=== PATIENT | male | born 1990 | race Caucasian/White ===

== ENCOUNTER 2020-01-25 13:23 | Inpatient (IN) | payer SELFPAY ==
--- NOTE | 2020-01-25 13:32 | ED_ITS ---
HPI - Psych General: Chief Complaint: Psychiatric Symptoms Stated Complaint: 96 Time Seen by Provider: 01/25/20 13:32 History of Present Illness: HPI Narrative: 29-year-old male presents emergency room with complaints of suicidal homicidal ideation. He says he has been depressed anxious. He claims to speak about any specifics. He has been admitted to the stress unit in the past. Has a history of substance abuse MD complaint: suicidal ideation and feels depressed Onset (ago): day(s) Duration: intermittent and getting worse History of same: Yes Relieving factors: none Exacerbating factors: none Associated symptoms: Reports depression, homicidal ideation and suicidal ideation; Deny auditory hallucinations, visual hallucinations, delusions or racing thoughts Treatments prior to arrival: none If self harm: admits thoughts of self harm and has plan Review of Systems Const: Denies: fever(s), chills, body aches, change in appetite, fatigue or malaise ENMT: Denies: throat pain, ear or mastoid pain, nasal discharge or nasal congestion Card: Denies: chest pain, edema, dyspnea on exertion or orthopnea Resp: Denies: dyspnea, productive cough or non-productive cough GI: Denies: abdominal pain, nausea, vomiting, hematemesis, coffee ground emesis, diarrhea, constipation, bloating, hematochezia or melena : Denies: flank pain, dysuria, urinary frequency or urinary urgency Skin/Breast: Denies: rash or pruritus Psych: Reports: depression, suicidal ideation and homicidal ideation; Denies: visual hallucinations or auditory hallucinations Physical Exam Const: COMMON NORMALS: no acute distress GENERAL APPEARANCE: cooperative and comfortable ORIENTATION/CONSCIOUSNESS: Yes awake, Yes oriented to person, Yes oriented to place and Yes oriented to time HENMT: COMMON NORMALS: normocephalic, atraumatic and hearing grossly normal bilaterally HEAD & SCALP: normocephalic and atraumatic Neck/C-Spine: COMMON NORMALS: no JVD Resp: COMMON NORMALS: normal respiratory effort, No retractions, No use of accessory muscles and clear to auscultation bilaterally AUSCULTATION: clear to auscultation bilaterally Cardio: COMMON NORMALS: no JVD, regular rate, regular rhythm and No murmurs present (Cardio) RATE: regular rate RHYTHM: regular rhythm GI: COMMON NORMALS: Soft to palpation and No hepatosplenomegaly present AUSCULTATION: Yes normoactive bowel sounds PALPATION: Yes Soft to palpation, No Tenderness to palpation present (GI), No Guarding due to palpation present (GI) and Yes No hepatosplenomegaly present Extremity: COMMON NORMALS: normal to inspection, capillary refill normal, no clubbing, cyanosis or edema, no calf tenderness and no pedal edema Neuro: SENSORIUM/ORIENTATION: Yes oriented to person, Yes oriented to place and Yes oriented to time Psych: THOUGHT CONTENT: No delusions Skin: COMMON NORMALS: no rashes or lesions noted GENERAL SKIN EXAM: no rashes or lesions noted MDM - Psych MDM Narrative: Medical decision making narrative: Discussed with Dr. Mcgregor patient is making suicidal homicidal threats there is an affidavit from the mother as well as from the police. 96-hour hold placed orders written. Lab Data: Labs: Lab Results 01/25/20 01/25/20 01/25/20 Range/Units 13:53 13:53 14:00 WBC 4.3 (4.0-10.0) 10^3/ uL RBC 4.78 (4.1-5.3) 10^6/u L Hgb 14.9 (11.7-16.6) g/dL Hct 45.6 (42.0-52.0) % MCV 95.4 H (80-94) fL MCH 31.2 (28.0-34.0) pg MCHC 32.7 (30.0-36.0) g/dL RDW 11.8 L (12.1-15.1) % Plt Count 315 (130-400) 10^3/c mm MPV 9.4 (7.4-10.4) fL Neut % (Auto) 52.5 % Lymph % (Auto) 32.3 % [place] % (Auto) 10.0 % Eos % (Auto) 3.5 % Baso % (Auto) 1.2 % Neut # (Auto) 2.26 (1.8-7.7) 10^3/u L Lymph # (Auto) 1.4 (0.8-4.8) 10^3/u L [place] # (Auto) 0.4 (0.2-0.9) 10^3/u L Eos # (Auto) 0.2 (0.0-0.8) 10^3/u L Baso # (Auto) 0.1 (0.0-0.1) 10^3/u L Nucleated RBC % (a uto) 0 % Nucleated RBCs # 0.0 /100WBC Sodium 139 (136-145) mmol/L Potassium 4.1 (3.5-5.1) mmol/L Chloride 104 (98-107) mmol/L Carbon Dioxide 24 (22-29) mmol/L Anion Gap 15.1 (5-19) BUN 11 (6-20) mg/dL Creatinine 0.7 (0.7-1.2) mg/dL Glucose 109 (65-115) mg/dL Calculated Osmolal ity 288 (285-295) mOsm/k g Calcium 9.3 (8.5-10.5) mg/dL Total Bilirubin 0.5 (0.15-1.2) mg/dL AST 23 (0-40) U/L ALT 22 (0-41) U/L Alkaline Phosphata se 84 (40-130) IU/L Total Protein 7.2 (6.6-8.7) g/dL Albumin 4.8 (3.5-5.2) g/dL Globulin 2.4 (1.3-4.6) g/dL Urine Color Straw (Yellow) Urine Appearance Clear (CLEAR) Urine pH 7 (5-7) Ur Specific Gravit y 1.005 (1.005-1.030) Urine Protein Neg (Negative) Urine Glucose (UA) Norm (Normal) Urine Ketones Negative (Negative) Urine Blood Neg (Negative) Urine Nitrate Negative (Negative) Urine Bilirubin Neg (Negative) Urine Urobilinogen Norm (Negative) mg/dL Ur Leukocyte Melissa ase Negative (Negative) Urine Opiates Scre en (Negative) ng/mL Ur Barbiturates Sc reen (Negative) ng/mL Ur Phencyclidine S crn (Negative) ng/mL Ur Amphetamines Sc reen (Negative) ng/mL U Benzodiazepines Scrn (Negative) ng/mL Urine Cocaine Scre en (Negative) ng/mL U Marijuana (THC) Screen (Negative) ng/mL 01/25/20 Range/Units 14:00 WBC (4.0-10.0) 10^3/ uL RBC (4.1-5.3) 10^6/u L Hgb (11.7-16.6) g/dL Hct (42.0-52.0) % MCV (80-94) fL MCH (28.0-34.0) pg MCHC (30.0-36.0) g/dL RDW (12.1-15.1) % Plt Count (130-400) 10^3/c mm MPV (7.4-10.4) fL Neut % (Auto) % Lymph % (Auto) % [place] % (Auto) % Eos % (Auto) % Baso % (Auto) % Neut # (Auto) (1.8-7.7) 10^3/u L Lymph # (Auto) (0.8-4.8) 10^3/u L [place] # (Auto) (0.2-0.9) 10^3/u L Eos # (Auto) (0.0-0.8) 10^3/u L Baso # (Auto) (0.0-0.1) 10^3/u L Nucleated RBC % (a uto) % Nucleated RBCs # /100WBC Sodium (136-145) mmol/L Potassium (3.5-5.1) mmol/L Chloride (98-107) mmol/L Carbon Dioxide (22-29) mmol/L Anion Gap (5-19) BUN (6-20) mg/dL Creatinine (0.7-1.2) mg/dL Glucose (65-115) mg/dL Calculated Osmolal ity (285-295) mOsm/k g Calcium (8.5-10.5) mg/dL Total Bilirubin (0.15-1.2) mg/dL AST (0-40) U/L ALT (0-41) U/L Alkaline Phosphata se (40-130) IU/L Total Protein (6.6-8.7) g/dL Albumin (3.5-5.2) g/dL Globulin (1.3-4.6) g/dL Urine Color (Yellow) Urine Appearance (CLEAR) Urine pH (5-7) Ur Specific Gravit y (1.005-1.030) Urine Protein (Negative) Urine Glucose (UA) (Normal) Urine Ketones (Negative) Urine Blood (Negative) Urine Nitrate (Negative) Urine Bilirubin (Negative) Urine Urobilinogen (Negative) mg/dL Ur Leukocyte Melissa ase (Negative) Urine Opiates Scre en Negative (Negative) ng/mL Ur Barbiturates Sc reen Negative (Negative) ng/mL Ur Phencyclidine S crn Negative (Negative) ng/mL Ur Amphetamines Sc reen Negative (Negative) ng/mL U Benzodiazepines Scrn Negative (Negative) ng/mL Urine Cocaine Scre en Negative (Negative) ng/mL U Marijuana (THC) Screen Positive H (Negative) ng/mL Discharge Plan Discharge Patient Disposition: Admitted As Inpatient Clinical Impression: Suicidal ideation, Chronic schizophrenia, Depression Condition: Stable Referrals: Andrew Eli MD [Family Provider] - Coding Level of Care Code ED Associate Professor Of Art History for [facility] Fwd Exam Comprehensive
[2020-01-25 13:35] VITALS: BP 143/85; PULSE 90; RESP 16; TEMP 36.8; O2SAT 96; BMI 18.2
[2020-01-25 13:41] VITALS: BP 151/101; PULSE 93; RESP 18; O2SAT 99
[2020-01-25 14:15] LABS: Add Urine Microscopic? NO
[2020-01-25 14:16] LABS: Basophils # 0.1 10^3/uL (0.0-0.1); Basophils % 1.2 %; Eosinophils # 0.2 10^3/uL (0.0-0.8); Eosinophils % 3.5 %; Hematocrit 45.6 % (42.0-52.0); Hemoglobin 14.9 g/dL (11.7-16.6); Lymphocytes # 1.4 10^3/uL (0.8-4.8); Lymphocytes % 32.3 %; Mean Corpuscular HGB Conc 32.7 g/dL (30.0-36.0); Mean Corpuscular Hemoglobin 31.2 pg (28.0-34.0); Mean Corpuscular Volume 95.4 fL (80-94); Mean Platelet Volume 9.4 fL (7.4-10.4); Monocytes # 0.4 10^3/uL (0.2-0.9); Neutrophils # 2.26 10^3/uL (1.8-7.7); Neutrophils % 52.5 %; Nucleated Red Blood Cells % 0 %; Platelet Count 315 10^3/cmm (130-400); Red Blood Count 4.78 10^6/uL (4.1-5.3); Red Cell Distribution Width 11.8 % (12.1-15.1); White Blood Count 4.3 10^3/uL (4.0-10.0)
[2020-01-25 14:24] LABS: Bilirubin Urine Neg (Negative); Blood Urine Neg (Negative); Glucose Urine UA Norm (Normal); Ketones Urine Negative (Negative); Leukocyte Esterase Urine Negative (Negative); Nitrate Urine Negative (Negative); Protein Urine Neg (Negative); Specific Gravity, Urine 1.005 (1.005-1.030); Urine Appearance Clear (CLEAR); Urine Color Straw (Yellow); Urobilinogen Urine Norm (Negative); pH Urine 7 (5-7)
[2020-01-25 14:30] LABS: Amphetamines Screen Urine Negative (Negative); Barbiturates Screen Urine Negative (Negative); Benzodiazepines Screen Urine Negative (Negative); Cocaine Screen Urine Negative (Negative); Opiate Screen Urine Negative (Negative); PCP Screen Urine Negative (Negative); THC Screen Urine Positive (Negative)
[2020-01-25 14:34] VITALS: BP 148/99; PULSE 89; RESP 20; O2SAT 98
[2020-01-25 14:38] LABS: Alanine Aminotransferase 22 U/L (0-41); Albumin Level 4.8 g/dL (3.5-5.2); Alcohol Level 81 mg/dL (0-10); Alkaline Phosphatase 84 IU/L (40-130); Anion Gap 15.1 (5-19); Aspartate Amino Transferase 23 U/L (0-40); Blood Urea Nitrogen 11 mg/dL (6-20); Calcium 9.3 mg/dL (8.5-10.5); Carbon Dioxide 24 mmol/L (22-29); Chloride 104 mmol/L (98-107); Creatinine Clr Calc Pharmacy 152.5478; Globulin 2.4 g/dL (1.3-4.6); Glomerular Filtration Rate 135.3 mL/min (90-130); Glucose 109 mg/dL (65-115); Osmolality Calculated 288 mOsm/kg (285-295); Potassium 4.1 mmol/L (3.5-5.1); Sodium 139 mmol/L (136-145); Total Bilirubin 0.5 mg/dL (0.15-1.2); Total Protein 7.2 g/dL (6.6-8.7)
[2020-01-25 14:50] LABS: Acetaminophen < 5.0 ug/mL (10-30); Salicylate < 0.3 mg/dL (3-10)
[2020-01-25 15:18] VITALS: BP 149/97; PULSE 88; RESP 18; TEMP 36.6; O2SAT 96
[2020-01-25 16:49] VITALS: BP 138/89; PULSE 89; RESP 18; TEMP 36.5
[2020-01-25] MEDS: nicotine 2 mg Gum BUCCAL (17:49)
[2020-01-25] MEDS: trazodone 50 mg Tablet PO (20:43)
[2020-01-25] MEDS: hyDROXYzine 25 mg Capsule 50 MG PO (20:43)
[2020-01-25 20:45] VITALS: BP 122/77; PULSE 76; RESP 17; TEMP 36.4; O2SAT 6
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
[2020-01-26] MEDS: nicotine 2 mg Gum BUCCAL ×2 (13:40→16:59)
[2020-01-26 14:00] VITALS: BP 126/89; PULSE 82; RESP 18; TEMP 37
[2020-01-26 19:50] VITALS: BP 120/76; PULSE 73; RESP 16; TEMP 36.6; O2SAT 96
[2020-01-26] MEDS: hyDROXYzine 25 mg Capsule 50 MG PO (20:35)
[2020-01-26] MEDS: trazodone 50 mg Tablet PO (20:36)
[2020-01-27 06:00] VITALS: BP 111/75; PULSE 67; RESP 16; TEMP 36.8; O2SAT 98
[2020-01-27] MEDS: sertraline 50 mg Tablet PO (08:16)
--- NOTE | 2020-01-27 13:26 | NPU.GN ---
Brock was the most active participant in group this afternoon. He contributed a lot of personal experience and accountability of his own actions to the group. Brock seemed to enjoy the topic because he could relate to the things were speaking on. He spoke highly of his future and the goals he has for himself.
[2020-01-27] MEDS: nicotine 2 mg Gum BUCCAL ×2 (13:29→15:38)
[2020-01-27 14:00] VITALS: BP 132/89; PULSE 84; RESP 18; TEMP 37.1; O2SAT 99
--- NOTE | 2020-01-27 14:36 | PM.NPN ---
Subjective NPU Subjective: Interval history: Hank presented today reporting that he is doing better overall. He reports that he is serious this time that he has to get things together, be connected with treatment and will have not been anywhere he is more or less always done them. He agreed to work with the social work team to get connected with treatment prior to discharge. We discussed the plan to monitor him on medication for a couple of days with a plan to discharge him with a scheduled increase in the Zoloft to 100 mg. Reporting finding better. Mental Status Exam MSE Comments: This is a thin white male with adequate dress, grooming and eye contact. No abnormal movements except for resolving psychomotor retardation. Cooperative with exam no acute distress. Speech was more normal rate and volume. Mood described as a little better, affect less subdued. Thought process organized. Thought content: Patient denied any suicidal or homicidal ideation, there were no delusions reported or noted, he denied any auditory or visual hallucinations. Attention and concentration were intact and memory was reliable but none were formally tested. He is alert and oriented x3. Insight and judgment are improving. Impulse control is impaired, but improving. Vitals/I&O/Wt Last Vital Signs Temp 100.0 F H 01/27/20 19:49 Pulse 82 01/27/20 19:49 Resp 17 01/27/20 19:49 BP 144/79 01/27/20 19:49 Pulse Ox 98 01/27/20 19:49 Weight last 48 hrs Weight 66.678 kg Data NPU : 01/25/20 13:53 01/25/20 13:53 A&P Additional A&P Information (1) Suicidal ideation: (2) Depression: (3) Alcohol use: (4) Cannabis use disorder, mild, abuse: This is a 29-year-old white male with a history of addiction and significant mental health treatment with recent reports of possible psychosis who presents endorsing depression and lethality and and openness to the patient has been. 1. Continue current medication. 2. Continue every 15 minute checks for safety. 3. Encourage individual, group and milieu therapy. 4. Encourage sober living treatment upon discharge at the highest level of care to which he is willing to commit. Involuntary Hold Information 96 Hour Hold: 96 Hour Involuntary Admission: Yes 96 Hour Hold Ending Date: 01/31/20 96 Hour Hold Ending Time: 00:01 Attestations NPU Medical Necessity Statement*: Inpatient hospitalization is necessary and the clinically appropriate intervention at this time. We will monitor/medications and make changes as indicated. Likely length of stay 2-4 days. Coding Level of Care Code Acute Sales Account Executive for [employer]
[2020-01-27 19:49] VITALS: BP 144/79; PULSE 82; RESP 17; TEMP 37.8; O2SAT 98
[2020-01-27] MEDS: acetaminophen 325 mg Tablet 650 MG PO (20:21)
[2020-01-27] MEDS: trazodone 50 mg Tablet PO (20:21)
[2020-01-27] MEDS: hyDROXYzine 25 mg Capsule 50 MG PO (20:21)
[2020-01-28 06:00] VITALS: BP 146/96; PULSE 66; RESP 17; TEMP 36.5; O2SAT 99
[2020-01-28] MEDS: sertraline 50 mg Tablet PO (08:20)
[2020-01-28] MEDS: nicotine 2 mg Gum BUCCAL (10:32)
[2020-01-28 10:37] VITALS: BP 146/96; PULSE 66; RESP 17; TEMP 36.5; O2SAT 99
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
== END 2020-01-28 10:52 | disposition home or self-care (01) | DRG 881 ==
LOC: ER 14:46 → NP 14:54
PROVIDERS: Admitting Provider Psychiatry & Neurology Psychiatry; Emergency Provider Family Medicine; Family Provider Family Medicine; Visit Provider Psychiatry & Neurology Psychiatry
DX: F32.9 Major depressive disorder, single episode, unspecified (principal); R45.851 Suicidal ideations; F12.10 Cannabis abuse, uncomplicated; F10.10 Alcohol abuse, uncomplicated; R45.850 Homicidal ideations; Y90.6 Blood alcohol level of 120-199 mg/100 ml; Z91.5 Personal history of self-harm
CPT/HCPCS: 12345; 80053; 80306; 80307; 81003; 85025; 99284

== ENCOUNTER 2021-08-17 21:55 | Emergency (ER) | payer SELFPAY ==
[2021-08-17 21:58] VITALS: BP 161/95; PULSE 90; RESP 16; TEMP 36.7; O2SAT 99; BMI 19.8
--- NOTE | 2021-08-17 21:58 | ECG_ITS ---
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 Measurements Intervals Mcleod Rate: 89 P: 66 NC: 145 QRS: 77 QRSD: 106 T: 66 QT: 377 QTc: 459 Interpretive Statements SINUS RHYTHM POSSIBLE LEFT VENTRICULAR HYPERTROPHY [VOLTAGE CRITERIA PLUS LAE OR QRS WIDENING Compared to ECG 12/11/2017 21:22:02 Sinus arrhythmia no longer present Electronically Signed On 08-17-2021 22:31:29 CDT by Tonny Nunez M.D. [id number]
[2021-08-17 22:00] VITALS: BP 161/95; PULSE 97; RESP 17; O2SAT 98
--- NOTE | 2021-08-17 22:01 | ED_ITS ---
HPI - Overdose General: Chief Complaint: Overdose Stated Complaint: OD Time Seen by Provider: 08/17/21 21:55 Source: patient and EMS Mode of arrival: EMS Limitations: no limitations History of Present Illness: 30-year-old male states he was partying with friends tonight 2 to 3 hours ago. He states he had been drinking alcohol and they had also had been snorting methamphetamine along with fentanyl. States that he is only used a few times and started get very nervous and called EMS. When EMS arrived he states that he had been lethargic and was little somnolent gave him 0.25 Narcan he is awake and alert and answering my questions appropriately he denies this being intentional he states that it was recreational drug use denies any suicidal homicidal ideations. Review of Systems Const: Denies: fever(s), chills, body aches or change in appetite Eyes: Denies: blurry vision or eye discomfort ENMT: Denies: throat pain or dental pain Card: Denies: chest pain Resp: Denies: dyspnea GI: Denies: abdominal pain, nausea, vomiting or diarrhea : Denies: dysuria Musc: Denies: neck pain or back pain Skin/Breast: Denies: rash Neuro: Denies: headache(s) Psych: Denies: depression Alber/Lymph: Denies: easy bruising All/Imm: Denies: urticaria [facility] ED PFSH: Medical History Alcohol use Cannabis use disorder, mild, abuse Chronic schizophrenia Depression Social History Smoking and tobacco status: current some day smoker cigarettes Years cigarettes smoked: 12 Current gender identity: Male Physical Exam Const: COMMON NORMALS: patient oriented x3 GENERAL APPEARANCE: lethargic ORIENTATION/CONSCIOUSNESS: Yes lethargic HENMT: COMMON NORMALS: normocephalic and atraumatic HEAD & SCALP: normocephalic and atraumatic Eye: COMMON NORMALS: EOMs intact bilaterally OTHER: pin point pupils Neck/C-Spine: COMMON NORMALS: full ROM and supple Chest: COMMONS NORMALS: normal inspection of the chest and normal palpation of entire chest wall Resp: COMMON NORMALS: normal respiratory effort, No retractions, No use of accessory muscles and clear to auscultation bilaterally AUSCULTATION: clear to auscultation bilaterally Cardio: COMMON NORMALS: regular rate, regular rhythm and No murmurs present (Cardio) RATE: regular rate RHYTHM: regular rhythm GI: COMMON NORMALS: Normal to inspection, nondistended, normoactive bowel sounds present, Soft to palpation, non-tender and no masses PALPATION: Yes Soft to palpation Extremity: COMMON NORMALS: normal to inspection and full ROM Neuro: COMMON NORMALS: patient oriented x3, moves all extremities and no focal motor deficits SENSORIUM/ORIENTATION: Yes lethargic Psych: COMMON NORMALS: mental status grossly normal, Normal thought process present and cooperative THOUGHT PROCESS: Normal thought process present Skin: COMMON NORMALS: no rashes or lesions noted and no wounds GENERAL SKIN EXAM: no rashes or lesions noted Course Vital Signs: Vital signs: Vital Signs Temperature 98.0 F 08/17/21 21:58 Pulse Rate 97 08/17/21 22:00 Respiratory Rate 17 08/17/21 22:00 Blood Pressure 161/95 08/17/21 22:00 Pulse Oximetry 98 08/17/21 22:00 MDM - Overdose Medical Decision Making Patient presents here with an accidental overdose he has been well-appearing here he is wanting to leave I did observe him for over an hour he is requesting discharge I feel he is stable for discharge his mom is with him to stay with him tonight he is to follow-up PCP and return if worsening did give him counseling on his substance abuse. Lab Data : 08/17/21 22:04 08/17/21 22:04 Laboratory Results WBC 9.2 10^3/uL (4.0-10.0) 08/17/21 22:04 RBC 4.78 10^6/uL (4.1-5.3) 08/17/21 22:04 Hgb 15.0 g/dL (11.7-16.6) 08/17/21 22:04 Hct 45.5 % (42.0-52.0) 08/17/21 22:04 MCV 95.2 fl (80-94) H 08/17/21 22:04 MCH 31.4 pg (28.0-34.0) 08/17/21 22: MCHC 33.0 g/dL (30.0-36.0) 08/17/21 22:04 RDW 12.3 % (12.1-15.1) 08/17/21 22:04 Plt Count 336 10^3/cmm (130-400) 08/17/21 22:04 MPV 9.5 fL (7.4-10.4) 08/17/21 22:04 Neut % (Auto) 70.3 % 08/17/21 22:04 Lymph % (Auto) 21.4 % 08/17/21 22:04 [place] % (Auto) 5.8 % 08/17/21 22:04 Eos % (Auto) 1.2 % 08/17/21 22:04 Baso % (Auto) 0.4 % 08/17/21 22:04 Neut # (Auto) 6.44 10^3/uL (1.8-7.7) 08/17/21 22:04 Lymph # (Auto) 2.0 10^3/uL (0.8-4.8) 08/17/21 22:04 [place] # (Auto) 0.5 10^3/uL (0.2-0.9) 08/17/21 22:04 Eos # (Auto) 0.1 10^3/uL (0.0-0.8) 08/17/21 22:04 Baso # (Auto) 0.0 10^3/uL (0.0-0.1) 08/17/21 22:04 Nucleated RBC % (auto) 0 % 08/17/21 22:04 Nucleated RBCs # 0.0 /100WBC 08/17/21 22:04 Sodium 138 mmol/L (136-145) 08/17/21 22:04 Potassium 3.1 mmol/L (3.5-5.1) L 08/17/21 22:04 Chloride 98 mmol/L (98-107) 08/17/21 22:04 Carbon Dioxide 24 mmol/L (22-29) 08/17/21 22:04 Anion Gap 19.1 (5-19) H 08/17/21 22:04 BUN 6 mg/dL (6-20) 08/17/21 22:04 Creatinine 0.7 mg/dL (0.7-1.2) 08/17/21 22:04 GFR Calculation 134.3 mL/min (90-130) H 08/17/21 22:04 Glucose 162 mg/dL (65-115) H 08/17/21 22:04 Calculated Osmolality 287 mOsm/kg (285-295) 08/17/21 22:04 Calcium 9.3 mg/dL (8.5-10.5) 08/17/21 22:04 Total Bilirubin 0.2 mg/dL (0.15-1.2) 08/17/21 22:04 AST 28 U/L (0-40) 08/17/21 22:04 ALT 31 U/L (0-41) 08/17/21 22:04 Alkaline Phosphatase 118 IU/L (40-130) 08/17/21 22:04 Total Protein 8.0 g/dL (6.6-8.7) 08/17/21 22:04 Albumin 4.8 g/dL (3.5-5.2) 08/17/21 22:04 Globulin 3.2 g/dL (1.3-4.6) 08/17/21 22:04 Salicylates < 0.3 mg/dL (3-10) L 08/17/21 22:04 Acetaminophen < 5.0 ug/mL (10-30) L 08/17/21 22:04 Ethyl Alcohol 36 mg/dL (0-10) H 08/17/21 22:04 EKG Data EKG 1: I personally reviewed and interpreted this EKG as follows: EKG interpretation date: 08/17/21 EKG interpretation time: 22:04 Interpretation: nsr hr [address] or t wave abnormalities qrs 106 qtc 423 Discharge Plan Discharge Patient Disposition: Home Clinical Impression: Drug overdose Qualifiers: Encounter type: initial encounter Injury intent: accidental or unintentional Qualified Code(s): T50.901A - Poisoning by unspecified drugs, medicaments and biological substances, accidental (unintentional), initial encounter Condition: Stable Prescriptions: No Action sertraline [Zoloft] 100 mg tablet 150 mg PO DAILY Qty: 45 2RF Discharge Orders: Discharge ED (Routine); Ordered 08/17/21 Ordered By: Veena Whaley Referrals: Michelle Wood, BIOLOGY DEPARTMENT CHAIR [Primary Care Provider] - Discharge Diet: Advance as tolerated Discharge Activity: Resume usual activity Patient Instructions: Adult Overdose (ED) Coding Level of Care Code ED Live In Housekeeper Nanny for Chg Fwd Exam Comprehensive
[2021-08-17 22:10] LABS: Basophils % 0.4 %; Eosinophils # 0.1 10^3/uL (0.0-0.8); Eosinophils % 1.2 %; Hematocrit 45.5 % (42.0-52.0); Lymphocytes % 21.4 %; Mean Corpuscular Hemoglobin 31.4 pg (28.0-34.0); Mean Corpuscular Volume 95.2 fl (80-94); Mean Platelet Volume 9.5 fL (7.4-10.4); Monocytes # 0.5 10^3/uL (0.2-0.9); Monocytes % 5.8 %; Neutrophils # 6.44 10^3/uL (1.8-7.7); Neutrophils % 70.3 %; Nucleated Red Blood Cells % 0 %; Platelet Count 336 10^3/cmm (130-400); Red Blood Count 4.78 10^6/uL (4.1-5.3); Red Cell Distribution Width 12.3 % (12.1-15.1); White Blood Count 9.2 10^3/uL (4.0-10.0)
[2021-08-17 22:34] LABS: Alanine Aminotransferase 31 U/L (0-41); Albumin Level 4.8 g/dL (3.5-5.2); Alcohol Level 36 mg/dL (0-10); Alkaline Phosphatase 118 IU/L (40-130); Anion Gap 19.1 (5-19); Aspartate Amino Transferase 28 U/L (0-40); Blood Urea Nitrogen 6 mg/dL (6-20); Calcium 9.3 mg/dL (8.5-10.5); Carbon Dioxide 24 mmol/L (22-29); Chloride 98 mmol/L (98-107); Creatinine Clr Calc Pharmacy 167.0124; Globulin 3.2 g/dL (1.3-4.6); Glomerular Filtration Rate 134.3 mL/min (90-130); Glucose 162 mg/dL (65-115); Osmolality Calculated 287 mOsm/kg (285-295); Potassium 3.1 mmol/L (3.5-5.1); Sodium 138 mmol/L (136-145); Total Bilirubin 0.2 mg/dL (0.15-1.2)
[2021-08-17 22:42] LABS: Acetaminophen < 5.0 ug/mL (10-30); Salicylate < 0.3 mg/dL (3-10)
[2021-08-17 22:45] VITALS: BP 158/98; PULSE 91; RESP 16; O2SAT 98
[2021-08-17 23:00] VITALS: BP 149/88; PULSE 94; RESP 17; O2SAT 98
[2021-08-17 23:14] VITALS: BP 151/89; PULSE 89; RESP 18; O2SAT 100
[2021-08-17 23:16] LABS: Amphetamines Screen Urine Positive (Negative); Barbiturates Screen Urine Negative (Negative); Benzodiazepines Screen Urine Negative (Negative); Cocaine Screen Urine Negative (Negative); Opiate Screen Urine Negative (Negative); PCP Screen Urine Negative (Negative); THC Screen Urine Positive (Negative)
== END 2021-08-17 23:15 | disposition home or self-care (01) ==
PROVIDERS: Emergency Provider Emergency Medicine; PCP Nurse Practitioner
DX: T43.621A Poisoning by amphetamines, accidental (unintentional), initial encounter (principal); T40.411A Poisoning by fentanyl or fentanyl analogs, accidental (unintentional), initial encounter; F17.210 Nicotine dependence, cigarettes, uncomplicated
CPT/HCPCS: 80053; 80306; 80307; 85025; 93005; 99283

== ENCOUNTER 2023-01-07 02:48 | Inpatient (IN) | payer MEDICAID, SELFPAY ==
[2023-01-07 02:49] VITALS: BP 134/104; PULSE 96; RESP 18; TEMP 36.7; O2SAT 97; BMI 21.1
[2023-01-07 03:09] LABS: Add Urine Microscopic? NO; Charge for UA Resulting for Rev
[2023-01-07 03:09] LABS: Basophils # 0.1 10^3/uL (0.0-0.1); Basophils % 0.5 %; Eosinophils % 0.4 %; Hematocrit 45.8 % (37-53); Lymphocytes # 2.1 10^3/uL (0.8-4.8); Lymphocytes % 22.9 %; Mean Corpuscular HGB Conc 33.8 g/dL (30-55); Mean Corpuscular Hemoglobin 31.8 pg (27-33); Mean Corpuscular Volume 93.9 fl (82-101); Monocytes # 0.7 10^3/uL (0.2-0.9); Monocytes % 7.1 %; Neutrophils # 6.28 10^3/uL (1.8-7.7); Neutrophils % 68.7 %; Nucleated Red Blood Cells % 0 %; Platelet Count 393 10^3/cmm (157-399); Red Blood Count 4.88 10^6/uL (3.85-5.65); Red Cell Distribution Width 11.7 % (12.1-15.1); White Blood Count 9.16 10^3/uL (3.29-11.43)
[2023-01-07 03:12] LABS: Bilirubin Urine Neg (Negative); Blood Urine Neg (Negative); Glucose Urine UA Norm (Normal); Ketones Urine Negative (Negative); Leukocyte Esterase Urine Negative (Negative); Nitrate Urine Negative (Negative); Protein Urine Neg (Negative); Specific Gravity, Urine 1.005 (1.005-1.030); Urine Appearance Clear (CLEAR); Urine Color Light yellow (Yellow); Urobilinogen Urine Neg (Negative); pH Urine 7 (5-7)
[2023-01-07 03:21] LABS: Amphetamines Screen Urine Negative (Negative); Barbiturates Screen Urine Negative (Negative); Benzodiazepines Screen Urine Negative (Negative); Cocaine Screen Urine Negative (Negative); Opiate Screen Urine Negative (Negative); PCP Screen Urine Negative (Negative); THC Screen Urine Positive (Negative)
[2023-01-07 03:35] LABS: Acetaminophen < 5.0 ug/mL (10-30); Alanine Aminotransferase 25 U/L (0-41); Albumin Level 5.2 g/dL (3.5-5.2); Alkaline Phosphatase 100 U/L (40-130); Aspartate Amino Transferase 29 U/L (0-40); Blood Urea Nitrogen 8 mg/dL (6-20); Calcium 9.2 mg/dL (8.5-10.5); Carbon Dioxide 23 mmol/L (22-29); Chloride 101 mmol/L (98-107); Globulin 2.9 g/dL (1.3-4.6); Glomerular Filtration Rate 87.7 mL/min (90-130); Glucose 122 mg/dL (65-115); Osmolality Calculated 290 mOsm/kg (285-295); Salicylate 0.5 mg/dL (3-10); Sodium 140 mmol/L (136-145); Total Bilirubin 0.3 mg/dL (0.15-1.2); Total Protein 8.1 g/dL (6.6-8.7)
[2023-01-07 03:36] LABS: Alcohol Level 307 mg/dL (0-10)
--- NOTE | 2023-01-07 03:45 | ED.C_ITS ---
Documented by User: Gavin Jones DO 01/07/23 21:29 HPI - Psych General: Chief Complaint: Psychiatric Symptoms Stated Complaint: ETOH/SI Time Seen by Provider: 01/07/23 02:53 History of Present Illness: 32-year-old intoxicated male presenting by ambulance. He was evidently picked up and charged with driving under the influence this morning. He mentioned being depressed, and having suicidal thoughts. He was hence brought here. He continues to say, I just want to . I do not believe he has a specific plan. He has been admitted to the hospital before for psychiatric problems he says. He denies recent illness or other medical problems. He is not a great historian at this point. Review of Systems Const: Denies: fever(s) Eyes: Denies: change in vision ENMT: Denies: throat pain Card: Denies: chest pain Resp: Denies: dyspnea GI: Denies: abdominal pain or vomiting Neuro: Reports: headache(s) [facility] PFSH: Medical History Alcohol use Cannabis use disorder, mild, abuse Chronic schizophrenia Depression Social History Smoking and tobacco status: current some day smoker cigarettes Years cigarettes smoked: 12 Current gender identity: Male Physical Exam Const: GENERAL APPEARANCE: cooperative, disheveled, lethargic and odor of alcohol detected; not ill appearing and not frail appearing ORIENTATION/CONSCIOUSNESS: Yes lethargic HENMT: COMMON NORMALS: normocephalic, atraumatic and Normal external nose present HEAD & SCALP: normocephalic and atraumatic FACE & SINUS: normal facial exam NOSE: Normal external nose present and Normal nares present MOUTH: Normal oral and palatal mucosa present Eye: COMMON NORMALS: Equal, round and reactive pupils present and EOMs intact bilaterally PUPIL: Yes Equal, round and reactive pupils present Neck/C-Spine: GENERAL: Yes trachea midline CERVICAL SPINE: Yes cervical ROM normal and No Cervical spine tenderness Chest: CHEST: Yes Symmetrical chest wall rise Resp: COMMON NORMALS: normal respiratory effort, No retractions, No use of accessory muscles and clear to auscultation bilaterally AUSCULTATION: clear to auscultation bilaterally Cardio: COMMON NORMALS: regular rate and regular rhythm RATE: regular rate RHYTHM: regular rhythm GI: COMMON NORMALS: Normal to inspection, nondistended, normoactive bowel sounds present and Soft to palpation PALPATION: Yes Soft to palpation Extremity: COMMON NORMALS: no pedal edema Neuro: SENSORIUM/ORIENTATION: Yes lethargic MOTOR EXAM: Normal motor muscle tone present throughout Course Vital Signs: Vital signs: Vital Signs Temperature 97.9 F 01/07/23 19:56 Pulse Rate 108 H 01/07/23 19:56 Respiratory Rate 16 01/07/23 19:56 Blood Pressure 129/83 01/07/23 19:56 Pulse Oximetry 98 01/07/23 19:56 Oxygen Delivery Me thod Room Air 01/07/23 19:56 MDM - Psych Medical Decision Making Patient presenting with alcohol intoxication, and suicidal statements. He has slept in the ER for a couple of hours. Laboratory is back, and shows a normal CBC, unremarkable BMP, normal liver enzymes, urinalysis only positive for marijuana, and an ethyl alcohol level of 307. Although potentially a bit more sober now, he still complains of suicidal ideation. Repeat alcohol level is drawn for 8 AM. If he is still complaining of suicidal ideation at this point, he may require psychiatric admission. He will be checked out to the oncoming physician at shift change. Lab Data 01/07/23 03:06 01/07/23 03:06 Laboratory Results WBC 9.16 10^3/uL (3.29-11.43) 01/07/23 03:06 RBC 4.88 10^6/uL (3.85-5.65) 01/07/23 03:06 Hgb 15.50 g/dL (11.27-16.99) 01/07/23 03:06 Hct 45.8 % (37-53) 01/07/23 03:06 MCV 93.9 fl (82-101) 01/07/23 03:06 MCH 31.8 pg (27-33) 01/07/23 03:06 MCHC 33.8 g/dL (30-55) 01/07/23 03:06 RDW 11.7 % (12.1-15.1) L 01/07/23 03:06 Plt Count 393 10^3/cmm (157-399) 01/07/23 03:06 MPV 9.0 fL (7.4-10.4) 01/07/23 03:06 Neut % (Auto) 68.7 % 01/07/23 03:06 Lymph % (Auto) 22.9 % 01/07/23 03:06 [place] % (Auto) 7.1 % 01/07/23 03:06 Eos % (Auto) 0.4 % 01/07/23 03:06 Baso % (Auto) 0.5 % 01/07/23 03:06 Neut # (Auto) 6.28 10^3/uL (1.8-7.7) 01/07/23 03:06 Lymph # (Auto) 2.1 10^3/uL (0.8-4.8) 01/07/23 03:06 [place] # (Auto) 0.7 10^3/uL (0.2-0.9) 01/07/23 03:06 Eos # (Auto) 0.0 10^3/uL (0.0-0.8) 01/07/23 03:06 Baso # (Auto) 0.1 10^3/uL (0.0-0.1) 01/07/23 03:06 Nucleated RBC % (auto) 0 % 01/07/23 03:06 Nucleated RBCs # 0.0 /100WBC 01/07/23 03:06 Sodium 140 mmol/L (136-145) 01/07/23 03:06 Potassium 4.0 mmol/L (3.5-5.1) 01/07/23 03:06 Chloride 101 mmol/L (98-107) 01/07/23 03:06 Carbon Dioxide 23 mmol/L (22-29) 01/07/23 03:06 Anion Gap 20.0 (5-19) H 01/07/23 03:06 BUN 8 mg/dL (6-20) 01/07/23 03:06 Creatinine 1.0 mg/dL (0.7-1.2) 01/07/23 03:06 GFR Calculation 87.7 mL/min (90-130) L 01/07/23 03:06 Glucose 122 mg/dL (65-115) H 01/07/23 03:06 Calculated Osmolality 290 mOsm/kg (285-295) 01/07/23 03:06 Calcium 9.2 mg/dL (8.5-10.5) 01/07/23 03:06 Total Bilirubin 0.3 mg/dL (0.15-1.2) 01/07/23 03:06 AST 29 U/L (0-40) 01/07/23 03:06 ALT 25 U/L (0-41) 01/07/23 03:06 Alkaline Phosphatase 100 U/L (40-130) 01/07/23 03:06 Total Protein 8.1 g/dL (6.6-8.7) 01/07/23 03:06 Albumin 5.2 g/dL (3.5-5.2) 01/07/23 03:06 Globulin 2.9 g/dL (1.3-4.6) 01/07/23 03:06 Urine Color Light yellow (Yellow) 01/07/23 03:01 Urine Appearance Clear (CLEAR) 01/07/23 03:01 Urine pH 7 (5-7) 01/07/23 03:01 Ur Specific [place] 1.005 (1.005-1.030) 01/07/23 03:01 Urine Protein Neg (Negative) 01/07/23 03:01 Urine Glucose (UA) Norm (Normal) 01/07/23 03:01 Urine Ketones Negative (Negative) 01/07/23 03:01 Urine Blood Neg (Negative) 01/07/23 03:01 Urine Nitrate Negative (Negative) 01/07/23 03:01 Urine Bilirubin Neg (Negative) 01/07/23 03:01 Urine Urobilinogen Neg mg/dL (Negative) 01/07/23 03:01 Ur Leukocyte Esterase Negative (Negative) 01/07/23 03:01 Salicylates 0.5 mg/dL (3-10) L 01/07/23 03:06 Urine Opiates Screen Negative ng/mL (Negative) 01/07/23 03:01 Acetaminophen < 5.0 ug/mL (10-30) L 01/07/23 03:06 Ur Barbiturates Screen Negative ng/mL (Negative) 01/07/23 03:01 Ur Phencyclidine Scrn Negative ng/mL (Negative) 01/07/23 03:01 Ur Amphetamines Screen Negative ng/mL (Negative) 01/07/23 03:01 U Benzodiazepines Scrn Negative ng/mL (Negative) 01/07/23 03:01 Urine Cocaine Screen Negative ng/mL (Negative) 01/07/23 03:01 U Marijuana (THC) Screen Positive ng/mL (Negative) H 01/07/23 03:01 Ethyl Alcohol 206 mg/dL (0-10) H 01/07/23 08:06 Discharge Plan Discharge Patient Disposition: Admitted As Inpatient Admit Provider: Zander Mcgregor Clinical Impression: Alcohol use disorder, severe, dependence, Suicidal ideation Condition: Stable Sign Out Sign Out Data: Patient Sign Out occurred on 01/07/23 at 06:25. Patient's care was discussed, and care was transferred from to Ras Rees DO. Coding Level of Care Code ED [employer] Farm Manager for Chg Fwd Documented by User: Ras Rees DO 01/07/23 14:12 HPI - Psych General: Chief Complaint: Psychiatric Symptoms Stated Complaint: ETOH/SI Time Seen by Provider: 01/07/23 02:53 PFSH ED PFSH: Medical History Alcohol use Cannabis use disorder, mild, abuse Chronic schizophrenia Depression Social History Smoking and tobacco status: current some day smoker cigarettes Years cigarettes smoked: 12 Current gender identity: Male Course Vital Signs: Vital signs: Vital Signs Temperature 97.9 F 01/07/23 19:56 Pulse Rate 108 H 01/07/23 19:56 Respiratory Rate 16 01/07/23 19:56 Blood Pressure 129/83 01/07/23 19:56 Pulse Oximetry 98 01/07/23 19:56 Oxygen Delivery Me thod Room Air 01/07/23 19:56 MDM - Psych Medical Decision Making Patient presenting with alcohol intoxication, and suicidal statements. He has slept in the ER for a couple of hours. Laboratory is back, and shows a normal CBC, unremarkable BMP, normal liver enzymes, urinalysis only positive for marijuana, and an ethyl alcohol level of 307. Although potentially a bit more sober now, he still complains of suicidal ideation. Repeat alcohol level is drawn for 8 AM. If he is still complaining of suicidal ideation at this point, he may require psychiatric admission. He will be checked out to the oncoming physician at shift change. Care assumed at change of shift. Blood alcohol is down to 200 patient is still having some suicidal ideation. Discussed Dr. Mcgregor will admit on a 96-hour hold for suicidal ideation alcohol abuse. Medical Records I reviewed the patient's medical records. Lab Data I reviewed the patient's lab results. 01/07/23 03:06 01/07/23 03:06 Laboratory Results WBC 9.16 10^3/uL (3.29-11.43) 01/07/23 03:06 RBC 4.88 10^6/uL (3.85-5.65) 01/07/23 03:06 Hgb 15.50 g/dL (11.27-16.99) 01/07/23 03:06 Hct 45.8 % (37-53) 01/07/23 03:06 MCV 93.9 fl (82-101) 01/07/23 03:06 MCH 31.8 pg (27-33) 01/07/23 03:06 MCHC 33.8 g/dL (30-55) 01/07/23 03:06 RDW 11.7 % (12.1-15.1) L 01/07/23 03:06 Plt Count 393 10^3/cmm (157-399) 01/07/23 03:06 MPV 9.0 fL (7.4-10.4) 01/07/23 03:06 Neut % (Auto) 68.7 % 01/07/23 03:06 Lymph % (Auto) 22.9 % 01/07/23 03:06 [place] % (Auto) 7.1 % 01/07/23 03:06 Eos % (Auto) 0.4 % 01/07/23 03:06 Baso % (Auto) 0.5 % 01/07/23 03:06 Neut # (Auto) 6.28 10^3/uL (1.8-7.7) 01/07/23 03:06 Lymph # (Auto) 2.1 10^3/uL (0.8-4.8) 01/07/23 03:06 [place] # (Auto) 0.7 10^3/uL (0.2-0.9) 01/07/23 03:06 Eos # (Auto) 0.0 10^3/uL (0.0-0.8) 01/07/23 03:06 Baso # (Auto) 0.1 10^3/uL (0.0-0.1) 01/07/23 03:06 Nucleated RBC % (auto) 0 % 01/07/23 03:06 Nucleated RBCs # 0.0 /100WBC 01/07/23 03:06 Sodium 140 mmol/L (136-145) 01/07/23 03:06 Potassium 4.0 mmol/L (3.5-5.1) 01/07/23 03:06 Chloride 101 mmol/L (98-107) 01/07/23 03:06 Carbon Dioxide 23 mmol/L (22-29) 01/07/23 03:06 Anion Gap 20.0 (5-19) H 01/07/23 03:06 BUN 8 mg/dL (6-20) 01/07/23 03:06 Creatinine 1.0 mg/dL (0.7-1.2) 01/07/23 03:06 GFR Calculation 87.7 mL/min (90-130) L 01/07/23 03:06 Glucose 122 mg/dL (65-115) H 01/07/23 03:06 Calculated Osmolality 290 mOsm/kg (285-295) 01/07/23 03:06 Calcium 9.2 mg/dL (8.5-10.5) 01/07/23 03:06 Total Bilirubin 0.3 mg/dL (0.15-1.2) 01/07/23 03:06 AST 29 U/L (0-40) 01/07/23 03:06 ALT 25 U/L (0-41) 01/07/23 03:06 Alkaline Phosphatase 100 U/L (40-130) 01/07/23 03:06 Total Protein 8.1 g/dL (6.6-8.7) 01/07/23 03:06 Albumin 5.2 g/dL (3.5-5.2) 01/07/23 03:06 Globulin 2.9 g/dL (1.3-4.6) 01/07/23 03:06 Urine Color Light yellow (Yellow) 01/07/23 03:01 Urine Appearance Clear (CLEAR) 01/07/23 03:01 Urine pH 7 (5-7) 01/07/23 03:01 Ur Specific [place] 1.005 (1.005-1.030) 01/07/23 03:01 Urine Protein Neg (Negative) 01/07/23 03:01 Urine Glucose (UA) Norm (Normal) 01/07/23 03:01 Urine Ketones Negative (Negative) 01/07/23 03:01 Urine Blood Neg (Negative) 01/07/23 03:01 Urine Nitrate Negative (Negative) 01/07/23 03:01 Urine Bilirubin Neg (Negative) 01/07/23 03:01 Urine Urobilinogen Neg mg/dL (Negative) 01/07/23 03:01 Ur Leukocyte Esterase Negative (Negative) 01/07/23 03:01 Salicylates 0.5 mg/dL (3-10) L 01/07/23 03:06 Urine Opiates Screen Negative ng/mL (Negative) 01/07/23 03:01 Acetaminophen < 5.0 ug/mL (10-30) L 01/07/23 03:06 Ur Barbiturates Screen Negative ng/mL (Negative) 01/07/23 03:01 Ur Phencyclidine Scrn Negative ng/mL (Negative) 01/07/23 03:01 Ur Amphetamines Screen Negative ng/mL (Negative) 01/07/23 03:01 U Benzodiazepines Scrn Negative ng/mL (Negative) 01/07/23 03:01 Urine Cocaine Screen Negative ng/mL (Negative) 01/07/23 03:01 U Marijuana (THC) Screen Positive ng/mL (Negative) H 01/07/23 03:01 Ethyl Alcohol 206 mg/dL (0-10) H 01/07/23 08:06 No radiology studies performed this visit Discharge Plan Discharge Patient Disposition: Admitted As Inpatient Admit Provider: Zander Mcgregor Clinical Impression: Alcohol use disorder, severe, dependence, Suicidal ideation Condition: Stable Sign Out Sign Out Data: Patient Sign Out occurred on 01/07/23 at 06:25. Patient's care was discussed, and care was transferred from to Ras Rees DO. Coding Level of Care Code ED [employer] Farm Manager for Abbie Lowe
--- NOTE | 2023-01-07 06:56 | PC.NURSE ---
to room to assess pt. pt resting comfortably with eyes closed. respirations even and non labored. no needs identified at this time. 1:1 sitter at bedside.
[2023-01-07 08:38] LABS: Alcohol Level 206 mg/dL (0-10)
[2023-01-07 11:03] VITALS: BP 144/101; PULSE 100; RESP 16; TEMP 37; O2SAT 98
[2023-01-07] MEDS: hyDROXYzine 25 mg Capsule 50 MG PO (11:45)
[2023-01-07] MEDS: folic acid 1 mg Tablet PO (11:45)
[2023-01-07] MEDS: thiamine 100 mg Tablet PO (11:45)
[2023-01-07] MEDS: multivitamin therapeutic Tablet 1 TAB PO (11:45)
[2023-01-07 13:21] VITALS: BP 135/96; PULSE 111; RESP 16; TEMP 36.7; O2SAT 97
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
[2023-01-07 19:56] VITALS: BP 129/83; PULSE 108; RESP 16; TEMP 36.6; O2SAT 98
[2023-01-07] MEDS: trazodone 50 mg Tablet PO (21:13)
[2023-01-08 06:00] VITALS: BP 119/75; PULSE 83; RESP 16; TEMP 36.6; O2SAT 99
[2023-01-08] MEDS: multivitamin therapeutic Tablet 1 TAB PO (07:57)
[2023-01-08] MEDS: folic acid 1 mg Tablet PO (07:57)
[2023-01-08] MEDS: thiamine 100 mg Tablet PO (07:58)
--- NOTE | 2023-01-08 13:15 | W.PM.NPUPNS ---
Subjective NPU Subjective: 32-year-old white male admitted with suicidal ideation and depression in the context of significant alcohol abuse. The patient reported no alcohol withdrawal symptoms currently. He had reported that he felt better but continued to endorse depression for several months. He had reported no feelings of hopelessness but reported some recurring sadness and continued cravings for alcohol. The patient had reported low energy and low motivation while reporting continued concerns about his living situation. Mental Status Exam MSE Comments: Patient was lying in bed with a disheveled appearance appreciated. He was alert and oriented x3. His speech was reduced in rate and volume. He had minimized any suicidal or homicidal ideation. His mood was described as depressed. His affect appeared mood congruent and restricted in range. There was evidence of mild psychomotor retardation. His attention span appeared fair. His insight and judgment were poor. His impulse control appeared limited. There was no clear evidence of delusional thinking. He did not appear to be responding to internal stimuli and denied any auditory or visual hallucinations. His recent and remote memory appeared grossly intact today. Vitals/I&O/Wt Last Vital Signs Temp 97.8 F 01/08/23 06:00 Pulse 83 01/08/23 06:00 Resp 16 01/08/23 06:00 BP 119/75 01/08/23 06:00 Pulse Ox 99 01/08/23 06:00 O2 Del Method Room Air 01/08/23 06:00 Weight last 48 hrs Weight 72.575 kg Data NPU 01/07/23 03:06 01/07/23 03:06 A&P Assessment and plan (1) Major depressive disorder, recurrent severe without psychotic features: (2) Alcohol use disorder, severe, dependence: (3) Suicidal ideation: Plan 32-year-old male with alcohol dependence and depression currently endorsing suicidal thoughts with a past history of alcohol withdrawal symptoms. 1.??? Recommend sober living treatment at the highest level of care to which the patient is willing to commit. Add zoloft 25mg daily to target depression. 2.??? Continue q-15 minute checks for safety.? 3.??? Encourage individual, group and milieu therapy 4.??? CIWA PROTOCOL. Involuntary Hold Information 96 Hour Hold: 96 Hour Involuntary Admission: Yes 96 Hour Hold Ending Date: 01/13/23 96 Hour Hold Ending Time: 00:01 Attestations NPU Medical Necessity Statement*: Inpatient hospitalization is medically necessary and deemed to be the clinically appropriate intervention at this time. We will monitor and initiate medications and make changes as indicated. His likely length of stay is 3 to 5 days. Coding Level of Care Code Acute Code for Chg Fwd Diagnoses Major depressive disorder, recurrent severe without psychotic features F33.2 Alcohol use disorder, severe, dependence F10.20 Suicidal ideation R45.851
[2023-01-08] MEDS: sertraline 50 mg Tablet 25 MG PO (13:36)
[2023-01-08 14:00] VITALS: BP 124/83; PULSE 70; RESP 17; TEMP 36.6; O2SAT 100
[2023-01-08 19:46] VITALS: BP 132/73; PULSE 78; RESP 15; TEMP 36.8; O2SAT 98
[2023-01-08] MEDS: nicotine 2 mg Gum BUCCAL (20:20)
[2023-01-08] MEDS: trazodone 50 mg Tablet PO (21:25)
[2023-01-09 06:00] VITALS: BP 120/76; PULSE 62; RESP 14; TEMP 36.7; O2SAT 98
[2023-01-09] MEDS: sertraline 50 mg Tablet 25 MG PO (08:09)
[2023-01-09] MEDS: multivitamin therapeutic Tablet 1 TAB PO (08:09)
[2023-01-09] MEDS: thiamine 100 mg Tablet PO (08:09)
[2023-01-09] MEDS: folic acid 1 mg Tablet PO (08:09)
[2023-01-09] MEDS: nicotine 2 mg Gum BUCCAL ×2 (11:35→19:52)
[2023-01-09 14:00] VITALS: BP 137/79; PULSE 80; RESP 15; TEMP 36.8; O2SAT 99
[2023-01-09] MEDS: nicotine 4 mg lozenge MUCOUS MEM (15:48)
--- NOTE | 2023-01-09 16:19 | W.PM.NPUPNS ---
Subjective NPU Subjective: 32-year-old white male admitted with suicidal ideation and depression in the context of significant alcohol abuse. The patient had reported improved mood. He had no side effects from his antidepressant. He had reported having been struggling with methamphetamine use and reported some occasional cravings for meth. Patient had been less isolative today. He had reported an extended period of depression that have been worsened by substance use. He had reported significant alcohol consumption and stated that he would like to consider outpatient substance abuse treatment. Mental Status Exam MSE Comments: Casually dressed male who was alert and oriented x3. His speech was normal in rate rhythm and prosody. He had minimized any suicidal or homicidal ideation. His mood was described as depressed. His affect remains restricted in range. There was evidence of mild psychomotor retardation. His attention span appeared fair. His insight and judgment were poor. His impulse control appeared limited. There was no clear evidence of delusional thinking. He did not appear to be responding to internal stimuli and denied any auditory or visual hallucinations. His recent and remote memory appeared grossly intact today. Vitals/I&O/Wt Last Vital Signs Temp 98.3 F 01/09/23 14:00 Pulse 80 01/09/23 14:00 Resp 15 01/09/23 14:00 BP 137/79 01/09/23 14:00 Pulse Ox 99 01/09/23 14:00 O2 Del Method Room Air 01/09/23 06:00 Data NPU 01/07/23 03:06 01/07/23 03:06 A&P Assessment and plan (1) Major depressive disorder, recurrent severe without psychotic features: (2) Alcohol use disorder, severe, dependence: (3) Suicidal ideation: Plan 32-year-old male with alcohol dependence and depression currently endorsing suicidal thoughts with a past history of alcohol withdrawal symptoms. 1.??? Recommend sober living treatment at the highest level of care to which the patient is willing to commit. Increase Zoloft to 50 mg daily to target depression. 2.??? Continue q-15 minute checks for safety.? 3.??? Encourage individual, group and milieu therapy 4.??? [place] PROTOCOL. Involuntary Hold Information 96 Hour Hold: 96 Hour Involuntary Admission: Yes 96 Hour Hold Ending Date: 01/13/23 96 Hour Hold Ending Time: 00:01 Attestations NPU Medical Necessity Statement*: Inpatient hospitalization is medically necessary and deemed to be the clinically appropriate intervention at this time. We will monitor and initiate medications and make changes as indicated. His likely length of stay is 1-2 days. Coding Level of Care Code Acute Code for Chg Fwd Diagnoses Major depressive disorder, recurrent severe without psychotic features F33.2 Alcohol use disorder, severe, dependence F10.20 Suicidal ideation R45.851
[2023-01-09 19:55] VITALS: BP 129/85; PULSE 78; RESP 18; TEMP 37.1; O2SAT 98
[2023-01-09] MEDS: trazodone 50 mg Tablet PO ×2 (21:46→23:06)
[2023-01-10 06:00] VITALS: BP 110/66; PULSE 95; RESP 18; TEMP 36.6; O2SAT 99
[2023-01-10] MEDS: folic acid 1 mg Tablet PO (08:05)
[2023-01-10] MEDS: sertraline 50 mg Tablet PO (08:05)
[2023-01-10] MEDS: thiamine 100 mg Tablet PO (08:05)
[2023-01-10] MEDS: multivitamin therapeutic Tablet 1 TAB PO (08:05)
[2023-01-10] MEDS: nicotine 2 mg Gum BUCCAL (09:35)
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
[2023-01-10 13:13] VITALS: BP 138/84; PULSE 95; RESP 18; TEMP 37; O2SAT 97
[2023-01-10 13:15] VITALS: BP 138/84; PULSE 95; RESP 18; TEMP 37; O2SAT 97
== END 2023-01-10 14:52 | disposition home or self-care (01) | DRG 881 ==
LOC: ER 06:25 → NP 09:36
PROVIDERS: Emergency Medicine; Admitting Provider Psychiatry & Neurology Psychiatry; Emergency Provider Family Medicine; PCP Nurse Practitioner; Visit Provider Psychiatry & Neurology Psychiatry
DX: F32.A Depression, unspecified (principal); R45.851 Suicidal ideations; F15.10 Other stimulant abuse, uncomplicated; F10.129 Alcohol abuse with intoxication, unspecified; Y90.8 Blood alcohol level of 240 mg/100 ml or more; Z81.1 Family history of alcohol abuse and dependence; Z62.811 Personal history of psychological abuse in childhood; F17.210 Nicotine dependence, cigarettes, uncomplicated
CPT/HCPCS: 36415; 80053; 80306; 80307; 81003; 85025; 97150; 97165; 99285

== ENCOUNTER 2023-05-18 20:37 | Emergency (ER) | payer MEDICAID, SELFPAY ==
[2023-05-18] MEDS: haloperidol inj 5 mg/mL INJ 1 mL 10 MG IM (20:44)
[2023-05-18] MEDS: LORazepam 2 mg/mL INJ 10 mL MDV IM ×2 (20:44→22:15)
[2023-05-18] MEDS: diphenhydrAMINE 50 mg/mL SDV 1mL IM (20:44)
[2023-05-18 20:45] VITALS: BP 132/78; PULSE 82; RESP 16; TEMP 36.7; O2SAT 95; BMI 21.1
--- NOTE | 2023-05-18 20:57 | ED.C_ITS ---
HPI - Psych 2 General: Chief Complaint: Psychiatric Symptoms Stated Complaint: SI Time Seen by Provider: 05/18/23 20:38 History of Present Illness: Patient brought in by [facility] police for making suicidal ideations. Please was called out to his house where it appeared. Their statement that he was fighting with his mother after being intoxicated and making multiple statements that he just wanted to . Upon arrival to the ER patient is obnoxious belligerent yelling racial slurs cussing and spitting at staff. Patient did make several statements about just wanting to in the ER. Patient appears intoxicated or under the influence of drugs. Review of Systems 2 General: Reports: 10 or more systems reviewed and unremarkable except in HPI and below PFSH ED 2 PFSH: Medical History Alcohol use disorder, severe, dependence Cannabis use disorder, severe, dependence Methamphetamine use disorder, severe Major depressive disorder, recurrent severe without psychotic features Psychiatric care Social History Smoking and tobacco/nicotine status: current some day tobacco/nicotine user cigarettes Years cigarettes smoked: 12 Current gender identity: Male Physical Exam 2 Const: COMMON NORMALS: average body habitus, healthy appearing, alert and well nourished; limitations (Appears intoxicated or under the influence.) HENMT: COMMON NORMALS: normocephalic, atraumatic, hearing grossly normal bilaterally, external ears normal, Normal external nose present, moist oral mucous membranes and oropharynx normal HEAD & SCALP: normocephalic and atraumatic NOSE: Normal external nose present EXTERNAL EAR: Yes external ears normal Neck/C-Spine: COMMON NORMALS: no JVD Chest: COMMONS NORMALS: normal inspection of the chest and normal palpation of entire chest wall Resp: COMMON NORMALS: normal respiratory effort, No retractions, No use of accessory muscles and clear to auscultation bilaterally AUSCULTATION: clear to auscultation bilaterally Cardio: COMMON NORMALS: no JVD, regular rate, regular rhythm, S1 normal heart sound present, S2 normal heart sound present, No gallops present (Cardio), No clicks present (Cardio), No murmurs present (Cardio) and No rub (Cardio) R ATE: regular rate RHYTHM: regular rhythm HEART SOUNDS: S1 normal heart sound present and S2 normal heart sound present GI: COMMON NORMALS: Normal to inspection, nondistended, normoactive bowel sounds present, Soft to palpation, non-tender, No hepatosplenomegaly present and no masses PALPATION: Yes Soft to palpation and Yes No hepatosplenomegaly present Neuro: SENSORIUM/ORIENTATION: Yes alert Course 2 Vital Signs: Vital signs: Vital Signs Temperature 98.0 F 05/18/23 20:45 Pulse Rate 75 05/18/23 22:00 Respiratory Rate 16 05/18/23 22:00 Blood Pressure 127/74 05/18/23 22:00 Pulse Oximetry 96 05/18/23 23:14 Oxygen Delivery Me thod Room Air 05/18/23 23:14 MDM - Psych Medical Decision Making Patient was highly uncooperative belligerent yelling racial slurs cussing spitting at staff. Patient was given 10 mg of Haldol, 2 mg Ativan and 50 mg Benadryl IM. Patient is resting comfortably. Dr. Mcgregor was consulted who said we should reassess when the patient is sober. We let the patient sleep all night long and woke him up this morning to reassess and patient denies suicidal or homicidal ideations at this time. Patient will be discharged back to the deputies custody. Differential Diagnosis Likely suicidal ideation (Intoxication); Unlikely acute psychosis, chronic schizophrenia, bipolar disorder, depression, drug-induced psychotic disorder or acute anxiety Medical Records I reviewed the patient's medical records. Lab Data I reviewed the patient's lab results. 05/18/23 21:08 05/18/23 21:08 Laboratory Results WBC 10.66 10^3/uL (3.29-11.43) 05/18/23 21:08 RBC 4.67 10^6/uL (3.85-5.65) 05/18/23 21:08 Hgb 14.50 g/dL (11.27-16.99) 05/18/23 21:08 Hct 44.4 % (37-53) 05/18/23 21:08 MCV 95.1 fl (82-101) 05/18/23 21:08 MCH 31.0 pg (27-33) 05/18/23 21:08 MCHC 32.7 g/dL (30-55) 05/18/23 21:08 RDW 12.7 % (12.1-15.1) 05/18/23 21:08 Plt Count 317 10^3/cmm (157-399) 05/18/23 21:08 MPV 9.2 fL (7.4-10.4) 05/18/23 21:08 Neut % (Auto) 79.4 % 05/18/23 21:08 Lymph % (Auto) 13.8 % 05/18/23 21:08 [place] % (Auto) 5.6 % 05/18/23 21:08 Eos % (Auto) 0.5 % 05/18/23 21:08 Baso % (Auto) 0.3 % 05/18/23 21:08 Neut # (Auto) 8.47 10^3/uL (1.8-7.7) H 05/18/23 21:08 Lymph # (Auto) 1.5 10^3/uL (0.8-4.8) 05/18/23 21:08 [place] # (Auto) 0.6 10^3/uL (0.2-0.9) 05/18/23 21:08 Eos # (Auto) 0.1 10^3/uL (0.0-0.8) 05/18/23 21:08 Baso # (Auto) 0.0 10^3/uL (0.0-0.1) 05/18/23 21:08 Nucleated RBC % (auto) 0 % 05/18/23 21:08 Nucleated RBCs # 0.0 /100WBC 05/18/23 21:08 Sodium 142 mmol/L (136-145) 05/18/23 21:08 Potassium 4.0 mmol/L (3.5-5.1) 05/18/23 21:08 Chloride 104 mmol/L (98-107) 05/18/23 21:08 Carbon Dioxide 25 mmol/L (22-29) 05/18/23 21:08 Anion Gap 17.0 (5-19) 05/18/23 21:08 BUN 12 mg/dL (6-20) 05/18/23 21:08 Creatinine 0.8 mg/dL (0.7-1.2) 05/18/23 21:08 GFR Calculation 113.5 mL/min (90-130) 05/18/23 21:08 Glucose 113 mg/dL (65-115) 05/18/23 21:08 Calculated Osmolality 295 mOsm/kg (285-295) 05/18/23 21:08 Calcium 9.4 mg/dL (8.5-10.5) 05/18/23 21:08 Total Bilirubin 0.2 mg/dL (0.15-1.2) 05/18/23 21:08 AST 24 U/L (0-40) 05/18/23 21:08 ALT 17 U/L (0-41) 05/18/23 21:08 Alkaline Phosphatase 111 U/L (40-130) 05/18/23 21:08 Total Protein 7.9 g/dL (6.6-8.7) 05/18/23 21:08 Albumin 4.7 g/dL (3.5-5.2) 05/18/23 21:08 Globulin 3.2 g/dL (1.3-4.6) 05/18/23 21:08 Urine Color Yellow (Yellow) 05/18/23 21:05 Urine Appearance Clear (CLEAR) 05/18/23 21:05 Urine pH 7 (5-7) 05/18/23 21:05 Ur Specific [place] 1.005 (1.005-1.030) 05/18/23 21:05 Urine Protein Neg (Negative) 05/18/23 21:05 Urine Glucose (UA) Norm (Normal) 05/18/23 21:05 Urine Ketones Negative (Negative) 05/18/23 21:05 Urine Blood Neg (Negative) 05/18/23 21:05 Urine Nitrate Negative (Negative) 05/18/23 21:05 Urine Bilirubin Neg (Negative) 05/18/23 21:05 Urine Urobilinogen Norm mg/dL (Negative) 05/18/23 21:05 Ur Leukocyte Esterase Negative (Negative) 05/18/23 21:05 Salicylates < 0.3 mg/dL (3-10) L 05/18/23 21:08 Urine Opiates Screen Negative ng/mL (Negative) 05/18/23 21:05 Acetaminophen < 5.0 ug/mL (10-30) L 05/18/23 21:08 Ur Barbiturates Screen Negative ng/mL (Negative) 05/18/23 21:05 Ur Phencyclidine Scrn Negative ng/mL (Negative) 05/18/23 21:05 Ur Amphetamines Screen Negative ng/mL (Negative) 05/18/23 21:05 U Benzodiazepines Scrn Negative ng/mL (Negative) 05/18/23 21:05 Urine Cocaine Screen Negative ng/mL (Negative) 05/18/23 21:05 U Marijuana (THC) Screen Positive ng/mL (Negative) H 05/18/23 21:05 Ethyl Alcohol 340 mg/dL (0-10) H* 05/18/23 21:08 All radiology interpretation(s) finalized by discharge Discharge Plan Discharge Patient Disposition: Home Clinical Impression: Alcohol use disorder, severe, dependence Condition: Stable Prescriptions: No Action sertraline [Zoloft] 100 mg tablet 100 mg PO .morning Qty: 30 4RF Rx Instructions: Take one tablet every morning Discharge Orders: Discharge ED (Routine); Ordered 05/19/23 Ordered By: Antwan Corral Referrals: Michelle Wood, ELECTRONIC SALES AND SERVICE TECHNICIAN [Primary Care Provider] - 1 week Patient Instructions: Alcohol Intoxication (DC), Opioid Safety, Pain Management Activity Restrictions/Additional Instructions: Patient will be discharged back to the custody of the police department. Patient is deemed fit for confinement. Coding Level of Care Code ED Component Assembler for Abbie Lowe
[2023-05-18 21:14] LABS: Add Urine Microscopic? NO; Charge for UA Resulting for Rev
[2023-05-18 21:17] LABS: Bilirubin Urine Neg (Negative); Blood Urine Neg (Negative); Glucose Urine UA Norm (Normal); Ketones Urine Negative (Negative); Leukocyte Esterase Urine Negative (Negative); Nitrate Urine Negative (Negative); Protein Urine Neg (Negative); Specific Gravity, Urine 1.005 (1.005-1.030); Urine Appearance Clear (CLEAR); Urine Color Yellow (Yellow); Urobilinogen Urine Norm (Negative); pH Urine 7 (5-7)
[2023-05-18 21:18] LABS: Basophils % 0.3 %; Eosinophils # 0.1 10^3/uL (0.0-0.8); Eosinophils % 0.5 %; Hematocrit 44.4 % (37-53); Lymphocytes # 1.5 10^3/uL (0.8-4.8); Lymphocytes % 13.8 %; Mean Corpuscular HGB Conc 32.7 g/dL (30-55); Mean Corpuscular Volume 95.1 fl (82-101); Mean Platelet Volume 9.2 fL (7.4-10.4); Monocytes # 0.6 10^3/uL (0.2-0.9); Monocytes % 5.6 %; Neutrophils # 8.47 10^3/uL (1.8-7.7); Neutrophils % 79.4 %; Nucleated Red Blood Cells % 0 %; Platelet Count 317 10^3/cmm (157-399); Red Blood Count 4.67 10^6/uL (3.85-5.65); Red Cell Distribution Width 12.7 % (12.1-15.1); White Blood Count 10.66 10^3/uL (3.29-11.43)
[2023-05-18 21:24] LABS: Amphetamines Screen Urine Negative (Negative); Barbiturates Screen Urine Negative (Negative); Benzodiazepines Screen Urine Negative (Negative); Cocaine Screen Urine Negative (Negative); Opiate Screen Urine Negative (Negative); PCP Screen Urine Negative (Negative); THC Screen Urine Positive (Negative)
[2023-05-18 21:30] LABS: Alanine Aminotransferase 17 U/L (0-41); Albumin Level 4.7 g/dL (3.5-5.2); Alkaline Phosphatase 111 U/L (40-130); Aspartate Amino Transferase 24 U/L (0-40); Blood Urea Nitrogen 12 mg/dL (6-20); Calcium 9.4 mg/dL (8.5-10.5); Carbon Dioxide 25 mmol/L (22-29); Chloride 104 mmol/L (98-107); Creatinine Clr Calc Pharmacy 146.9913; Globulin 3.2 g/dL (1.3-4.6); Glomerular Filtration Rate 113.5 mL/min (90-130); Glucose 113 mg/dL (65-115); Osmolality Calculated 295 mOsm/kg (285-295); Sodium 142 mmol/L (136-145); Total Bilirubin 0.2 mg/dL (0.15-1.2); Total Protein 7.9 g/dL (6.6-8.7)
[2023-05-18 21:31] LABS: Acetaminophen < 5.0 ug/mL (10-30); Salicylate < 0.3 mg/dL (3-10)
[2023-05-18 21:32] LABS: Alcohol Level 340 mg/dL (0-10)
[2023-05-18 22:00] VITALS: BP 127/74; PULSE 75; RESP 16; O2SAT 96
[2023-05-18 23:14] VITALS: O2SAT 96
--- NOTE | 2023-05-19 01:40 | PC.NURSE ---
05/18/23 2115 Pt being beligerant and uncooperative, yelling, cussing at staff and spitting at them, drug safety specialist at bedside, security and doctor at bedside. Pt given medication per Dr Corral. Dr Corral made the call to place in restraint bed due to patient want to kick legs and swing arms and staff having to keep patient in bed. 05/19/23 0100 Pt resting, restraints taken off at this time. Respiration even and unlabored, 95% on room air.
== END 2023-05-19 05:25 | disposition home or self-care (01) ==
PROVIDERS: Emergency Provider Emergency Medicine; PCP Nurse Practitioner
DX: F10.229 Alcohol dependence with intoxication, unspecified (principal); Y90.8 Blood alcohol level of 240 mg/100 ml or more; F17.210 Nicotine dependence, cigarettes, uncomplicated
CPT/HCPCS: 36415; 80053; 80306; 80307; 81003; 85025; 96372; 99284; J1200; J1630; J2060

== ENCOUNTER 2023-08-26 08:46 | Emergency (ER) | payer MEDICAID, SELFPAY ==
[2023-08-26 08:47] VITALS: BP 154/97; PULSE 92; RESP 18; TEMP 36.8; O2SAT 97
--- NOTE | 2023-08-26 09:05 | W.ED.ALCOHOL ---
HPI - Alcohol General: Chief Complaint: Alcohol Stated Complaint: ETOH Time Seen by Provider: 08/26/23 08:55 Source: patient Mode of arrival: other (EMS police) Limitations: no limitations History of Present Illness: Patient was transported to the emergency department after his mother called EMS. Patient states he lives with an older woman and she became accusing of him this morning stating that she thinks that he was stealing from her. He states that after the verbal interaction he took a shot of whiskey smoked a blunt and then took a Xanax all of which are usual activities for him. EMS and police arrived and brought him to the emergency department for further evaluation. He adamantly denies any thoughts of harming himself he states he has not thought of harming himself for many years and never acted on those thoughts previously. He has a regularly user of medicinal marijuana and also drinks on a fairly regular basis. He is followed by [facility] [place] for his mental health care. He was transported here by the police department for clearance. Chronic alcohol use: Yes Recent trauma: No Associated symptoms: Deny abdominal pain, nausea, suicidal ideation or vomiting Review of Systems Const: Denies: fever(s) or chills Eyes: Denies: change in vision ENMT: Denies: throat pain or nasal congestion Card: Denies: chest pain, palpitations or lightheadedness Resp: Denies: dyspnea, productive cough or non-productive cough GI: Denies: abdominal pain, nausea or vomiting : Denies: flank pain, difficulty urinating or dysuria Musc: Denies: neck pain, back pain or extremity pain Skin/Breast: Denies: rash Neuro: Denies: headache(s), numbness in extremities or weakness in extremities Psych: Reports: anxiety; Denies: visual hallucinations, auditory hallucinations, suicidal ideation or homicidal ideation [facility] PFSH: Medical History Alcohol use disorder, severe, dependence Cannabis use disorder, severe, dependence Methamphetamine use disorder, severe Major depressive disorder, recurrent severe without psychotic features Psychiatric care Social History Smoking and tobacco/nicotine status: current some day tobacco/nicotine user cigarettes Years cigarettes smoked: 12 Current gender identity: Male Physical Exam Narrative: EXAM NARRATIVE: Patient is alert he is a little bit belligerent to certain staff members but generally communicates fluently and effectively with me. He denies any complaints at this time. Const: COMMON NORMALS: average body habitus and patient oriented x3 GENERAL APPEARANCE: cooperative HENMT: COMMON NORMALS: normocephalic, Normal nasal mucous membranes and turbinates present, moist oral mucous membranes and oropharynx normal HEAD & SCALP: normocephalic NOSE: Normal nasal mucous membranes and turbinates present Eye: COMMON NORMALS: Equal, round and reactive pupils present, EOMs intact bilaterally and conjunctivae normal CONJUNCTIVA: Yes conjunctivae normal PUPIL: Yes Equal, round and reactive pupils present Neck/C-Spine: COMMON NORMALS: full ROM, no lymphadenopathy and Thyroid normal THYROID: Thyroid normal Chest: COMMONS NORMALS: normal inspection of the chest and normal palpation of entire chest wall Resp: COMMON NORMALS: normal respiratory effort and clear to auscultation bilaterally AUSCULTATION: clear to auscultation bilaterally Cardio: COMMON NORMALS: regular rate, regular rhythm, No murmurs present (Cardio) and Peripheral pulses 2+ throughout RATE: regular rate RHYTHM: regular rhythm PERIPHERAL PULSES: Peripheral pulses 2+ throughout GI: COMMON NORMALS: Normal to inspection, nondistended, normoactive bowel sounds present, Soft to palpation and non-tender PALPATION: Yes Soft to palpation : COMMON NORMALS: Yes no CVA tenderness BLADDER/KIDNEY EXAM: Yes no CVA tenderness Back/Pelvis: COMMON NORMALS: no CVA tenderness, thoracic and lumbar spine normal to inspection, no thoracic nor lumbar tenderness and thoraco-lumbar ROM normal Extremity: COMMON NORMALS: normal to inspection, full ROM and capillary refill normal Neuro: COMMON NORMALS: patient oriented x3, no focal motor deficits and no sensory deficits noted CRANIAL NERVES: Yes CN normal except as noted Psych: COMMON NORMALS: mental status grossly normal, Normal thought process present and cooperative ACTIVITY/MOTOR BEHAVIOR: Yes appropriate eye contact SPEECH: Yes rapid MOOD & AFFECT: Yes tearful THOUGHT PROCESS: Normal thought process present THOUGHT CONTENT: Yes Normal thought content present INSIGHT: Limited insight present (Psych) JUDGEMENT: Fair judgement present (Psych) Skin: COMMON NORMALS: no rashes or lesions noted NARRATIVE SKIN EXAM: Multiple skin tattoos GENERAL SKIN EXAM: no rashes or lesions noted Course Reevaluation(s): Reevaluation #1: Patient was reinterviewed. He feels very comfortable he is taken a nap and is very relaxed. Vital signs are unremarkable. He makes good eye contact speaks in goal-directed sentences and is not tearful and does not have a particularly concerning affect. He has intact decision-making capacity and is aware of his situation. He is still adamantly denies any thoughts of harming himself and others. He is ready to go home to his mother. He is drinking fluids while in the emergency department. He has mental health follow-up with [facility] [place] and has responsible adults that he lives with. At this point he is deemed reasonably low risk for self-harm or other concerns at this time and is suitable to be discharged. We also discussed return precautions which she acknowledged and was thankful. Time: 13:46 Vital Signs: Vital signs: Vital Signs Temperature 98.3 F 08/26/23 08:47 Pulse Rate 92 08/26/23 08:47 Respiratory Rate 18 08/26/23 08:47 Blood Pressure 154/97 08/26/23 08:47 Pulse Oximetry 97 08/26/23 08:47 [facility] - Alcohol Medical Decision Making This patient was transported by EMS to the emergency department. The story was that he is individual that he lives with was accusing him of stealing and he became emotionally upset by this accusation and had a shot of alcohol took a Xanax as well as smoked a blunt. Apparently his live-in girlfriend texted his mother who became concerned and called EMS and police and therefore he was transported to the emergency department. Upon arrival to emergency department he made good eye contact and was very specific and that he had no thoughts of self-harm or others but was only upset because of the accusations made against him. His clinical exam revealed him to be again all were awake and alert without any stigmata that would suggest impaired mentation. He was emotionally engaged and somewhat tearful initially during our interview but as we continued observation and throughout the emergency department stay his affect was full and nontearful. After period of observation emergency department with he was reassessed and still was adamant that he had no thoughts of self-harm or harm to others and did not request or seek admission at this time. He has established follow-up with [facility] and does have a place that he may go to stay with other responsible adults. We discussed return precautions which she acknowledged and is stable at this time to be discharged. No radiology studies performed this visit EKG Data EKG 1: I personally reviewed and interpreted this EKG as follows: Interpretation: Resting EKG reveals a ventricular rate of 67 bpm. Has normal LA interval, QRS duration, corrected QT interval. Normal axis. He has voltage criteria for LVH as well as some changes consistent with early repolarization. This is unchanged from previous tracings within the system. Discharge Plan Discharge Patient Disposition: Home Clinical Impression: Alcohol use disorder, Chronic depression Condition: Stable Prescriptions: No Action No Known Home Medications Discharge Orders: Discharge ED (Routine); Ordered 08/26/23 Ordered By: Shahid Francois Referrals: Michelle Wood FNP [Primary Care Provider] - Discharge Diet: Usual diet Discharge Activity: Increase activity as tolerated Patient Instructions: Opioid Safety, Pain Management Activity Restrictions/Additional Instructions: As we discussed while you are in the emergency department and you acknowledged that you have no thoughts of self-harm or harm to others you have decided to be discharged. You should follow-up with behavioral health center next week to continue your mental health care. If it anytime you begin to have thoughts of self-harm have a plan of harm or otherwise have concerning mental health thoughts you are welcome to return to the emergency department. Reduce your alcohol and other substance use. Coding Level of Care Code ED Broadcast Checker for Abbie Lowe
--- NOTE | 2023-08-26 09:12 | ECG_ITS ---
[facility] Test Date: 2023-08-26 Pat Name: Brock Maciel Department: Room: Gender: Male Director Of Elementary Education: : 1990 Requested By: Shahid Francois Order Number: [id number] Jeremy MD: Donaldo Combs M.D. Measurements Intervals [place] Rate: 67 P: 37 NE: 200 QRS: 64 QRSD: 106 T: 43 QT: 418 QTc: 443 Interpretive Statements SINUS RHYTHM POSSIBLE LEFT VENTRICULAR HYPERTROPHY [VOLTAGE CRITERIA PLUS LAE OR QRS WIDENING] Early repolarization changes Compared to ECG 08/17/2021 22:04:21 No significant changes Electronically Signed On 08-26-2023 19:54:39 CDT by Donaldo Combs M.D. [id number]
[2023-08-26 14:00] VITALS: BP 131/85; PULSE 77; RESP 17; O2SAT 100
== END 2023-08-26 14:04 | disposition home or self-care (01) ==
PROVIDERS: Emergency Provider Emergency Medicine; PCP Nurse Practitioner
DX: F10.90 Alcohol use, unspecified, uncomplicated (principal); F19.90 Other psychoactive substance use, unspecified, uncomplicated; F32.A Depression, unspecified; F17.210 Nicotine dependence, cigarettes, uncomplicated
CPT/HCPCS: 93005; 99283

== ENCOUNTER → 2023-09-15 16:00 | Outpatient (BNVA) | payer OTHER, SELFPAY | PROVIDERS: PCP Nurse Practitioner; Visit Provider Nurse Practitioner Psychiatric/Mental Health | DX: Z79.899 Other long term (current) drug therapy (principal); F33.2 Major depressive disorder, recurrent severe without psychotic features; F15.20 Other stimulant dependence, uncomplicated; F12.20 Cannabis dependence, uncomplicated; F10.20 Alcohol dependence, uncomplicated | CPT/HCPCS: 80053; 80061; 80307; 82746; 83036; 85025 ==

== ENCOUNTER 2023-12-17 18:59 | Emergency (ER) | payer MEDICAID, SELFPAY ==
--- NOTE | 2023-12-17 19:00 | PC.NURSE ---
This RN was called to the ER admission desk due to pt behavior. Pt was at the desk in a wheel, yelling at registration and security. Pt berating staff and disrupting the ER waiting room. Pt was pulled into vertical flow where he continually yelled at staff, made aggressive statements and told staff that we were all jarrett to be born with a silver spoon in our mouths . Pt stated several times you don't fucking care about me, all you care about is your paycheck . Pt was reminded that the hospital was not forcing him to stay and he can leave at anytime. Pt was also reminded that if he continued to yell obscenities, act belligerent towards staff, refuse hospital care and scare other pts, law enforcement will need to get involved. Pt ultimately agreed to behave and stay for treatment.
[2023-12-17 19:14] VITALS: BP 158/89; PULSE 109; RESP 22; TEMP 36.6; O2SAT 98; BMI 21.1
--- NOTE | 2023-12-17 19:41 | XRR_ITS ---
PROCEDURE INFORMATION: Exam: XR Right Foot Exam date and time: 12/17/2023 8:25 PM Age: 33 years old Clinical indication: Swelling, leg or foot; Right; Patient HX: Patient C/O bilateral foot pain with redness and swelling. ; Additional info: Redness swelling pain TECHNIQUE: Imaging protocol: Radiologic exam of the right foot. Views: 3 or more views. COMPARISON: No relevant prior studies available. FINDINGS: Bones/joints: Normal. Soft tissues: Normal. XR/XR foot RT min 3V* [id number] IMPRESSION: No acute findings.
--- NOTE | 2023-12-17 19:41 | XRR_ITS ---
PROCEDURE INFORMATION: Exam: XR Left Foot Exam date and time: 12/17/2023 8:22 PM Age: 33 years old Clinical indication: Swelling, leg or foot; Left; Patient HX: Patient C/O bilateral foot pain with redness and swelling. ; Additional info: Redness swelling pain TECHNIQUE: Imaging protocol: Radiologic exam of the left foot. Views: 3 or more views. COMPARISON: No relevant prior studies available. FINDINGS: Bones/joints: Normal. Soft tissues: Normal. XR/XR foot LT min 3V* [id number] IMPRESSION: No acute findings.
[2023-12-17] MEDS: haloperidol inj 5 mg/mL INJ 1 mL IVP (20:17)
[2023-12-17] MEDS: ketorolac 30 mg/mL INJ IVP (20:17)
[2023-12-17] MEDS: vancomycin 1,000 MG in sodium chloride 0.9% 250 ML 250 MG IV (20:22)
[2023-12-17 20:43] LABS: Basophils # 0.1 10^3/uL (0.0-0.1); Basophils % 0.5 %; Eosinophils # 0.1 10^3/uL (0.0-0.8); Eosinophils % 1.1 %; Lymphocytes # 1.8 10^3/uL (0.8-4.8); Lymphocytes % 14.6 %; Mean Corpuscular HGB Conc 33.8 g/dL (30-55); Mean Platelet Volume 9.3 fL (7.4-10.4); Monocytes # 1.1 10^3/uL (0.2-0.9); Monocytes % 8.3 %; Neutrophils # 9.51 10^3/uL (1.8-7.7); Neutrophils % 75.2 %; Nucleated Red Blood Cells % 0 %; Platelet Count 327 10^3/cmm (157-399); Red Blood Count 4.35 10^6/uL (3.85-5.65); Red Cell Distribution Width 11.5 % (12.1-15.1); White Blood Count 12.64 10^3/uL (3.29-11.43)
[2023-12-17 20:47] LABS: Erythrocyte Sedimentation Rate 43 mm/hr (0-10)
[2023-12-17 20:53] LABS: Lactic Sepsis W/Reflex 3.1 mmol/L (0.5-2.2)
[2023-12-17 20:54] LABS: Alanine Aminotransferase 9 U/L (0-41); Albumin Level 4.7 g/dL (3.5-5.2); Alcohol Level 191 mg/dL (0-10); Alkaline Phosphatase 134 U/L (40-130); Anion Gap 24.1 (5-19); Aspartate Amino Transferase 21 U/L (0-40); Blood Urea Nitrogen 8 mg/dL (6-20); C Reactive Protein 87.7 mg/L (0.0-4.9); Calcium 9.7 mg/dL (8.5-10.5); Carbon Dioxide 22 mmol/L (22-29); Chloride 96 mmol/L (98-107); Creatinine Clr Calc Pharmacy 166.4629; Globulin 3.4 g/dL (1.3-4.6); Glomerular Filtration Rate 131.5 mL/min (90-130); Glucose 99 mg/dL (65-115); Osmolality Calculated 286 mOsm/kg (285-295); Potassium 3.1 mmol/L (3.5-5.1); Sodium 139 mmol/L (136-145); Total Bilirubin 0.6 mg/dL (0.15-1.2); Total Protein 8.1 g/dL (6.6-8.7); Uric Acid 4.7 mg/dL (3.4-7.0)
[2023-12-17 20:56] LABS: Charge for UA Resulting for Rev
[2023-12-17 21:00] LABS: Bilirubin Urine Negative (Negative); Blood Urine Negative (Negative); Glucose Urine UA Negative (Normal); Ketones Urine Negative (Negative); Leukocyte Esterase Urine Negative (Negative); Nitrate Urine Negative (Negative); Protein Urine Negative (Negative); Specific Gravity, Urine 1.006 (1.005-1.030); Urine Appearance Clear (CLEAR); Urine Color Yellow (Yellow)
[2023-12-17 21:06] LABS: Bacteria Urine None Seen /hpf; Hyaline Casts Urine 0-4 /lpf; RBC Urine 0-2 /hpf (0-2); Squamous Epithelial Cell Urine 0-5 /hpf (0-5); WBC Urine 0-5 /hpf (0-5)
[2023-12-17 21:09] LABS: Amphetamines Screen Urine Positive (Negative); Barbiturates Screen Urine Negative (Negative); Benzodiazepines Screen Urine Negative (Negative); Cocaine Screen Urine Negative (Negative); Opiate Screen Urine Negative (Negative); PCP Screen Urine Negative (Negative); THC Screen Urine Positive (Negative)
--- NOTE | 2023-12-17 21:12 | ED_ITS ---
HPI - Extremity Problem 2 General: Chief complaint: Extremity Injury, Lower Stated complaint: Edema of ankle, ETOH , METH Time Seen by Provider: 12/17/23 19:21 History of Present Illness: 33-year-old male with a history of polys ubstance abuse. He presents with red, swollen painful feet and ankles. He denies injury. He denies injection into his feet of any substances. He has not had problems like this before. He denies any insect bites that he knows of. He denies fever vomiting. He states that he has been awake for several days, on substances, and is agitated. Related Data Previous Rx's Medication Instructions Recorded sertraline 50 mg tablet 50 mg PO .morning #30 tabs 09/15/23 doxycycline hyclate 100 mg tablet 100 mg PO BID 10 days #20 tabs 12/17/23 ketorolac 10 mg tablet 10 mg PO TID PRN pain #10 tabs 12/17/23 Allergies Allergy/AdvReac Type Severity Reaction Status Date / Time No Known Allergies Allergy Verified 09/15/23 14:50 [facility] ED 2 PFSH: Medical History Alcohol use disorder, severe, dependence Cannabis use disorder, severe, dependence Methamphetamine use disorder, severe Major depressive disorder, recurrent severe without psychotic features Psychiatric care Social History Smoking and tobacco/nicotine status: current some day tobacco/nicotine user cigarettes Years cigarettes smoked: 12 Current gender identity: Male Physical Exam 2 Const: COMMON NORMALS: alert GENERAL APPEARANCE: cooperative and other (Agitated) HENMT: COMMON NORMALS: normocephalic and atraumatic HEAD & SCALP: n ormocephalic and atraumatic Eye: COMMON NORMALS: Equal, round and reactive pupils present and EOMs intact bilaterally PUPIL: Yes Equal, round and reactive pupils present Neck/C-Spine: GENERAL: Yes trachea midline Chest: CHEST: Yes Symmetrical chest wall rise Resp: COMMON NORMALS: normal respiratory effort, No use of accessory muscles and clear to auscultation bilaterally AUSCULTATION: clear to auscultation bilaterally Cardio: COMMON NORMALS: regular rhythm RATE: tachycardic RHYTHM: regular rhythm Extremity: NARRATIVE EXTREMITY EXAM: Exam of the bilateral lower extremities reveal redness and swelling in the soft tissue to the bilateral feet. There may be a small puncture wound to the left lateral foot, but not the right. No deformities. Neuro: SENSORIUM/ORIENTATION: Yes alert Course 2 Vital Signs: Vital signs: Vital Signs Temperature 97.9 F 12/17/23 23:56 Pulse Rate 76 12/17/23 23:56 Respiratory Rate 14 12/17/23 23:56 Blood Pressure 118/80 12/17/23 23:56 Pulse Oximetry 99 12/17/23 23:56 Oxygen Delivery Me thod Room Air 12/17/23 23:55 MDM - Extremity (Nontraumatic) Medical Decision Making Inflammatory markers are mildly elevated. He is afebrile. Vital signs are now normal. He was given Haldol for agitation and nausea. Toradol for pain. White blood cell count is 12.6. X-rays revealed no acute findings of the feet. Urinalysis is negative. Urine drug screen is positive for amphetamines and marijuana. CRP is 88. ESR is 43. This is an unknown injury. This could be a burn such as a sunburn or thermal burn. It also could be a cellulitis. He has no evidence of DVT to either extremity. He will be placed on doxycycline for coverage of MRSA, etc. Close outpatient follow-up. He has received vancomycin IV here. Lab Data 12/17/23 20:25 12/17/23 20:25 Radiology Impressions Foot X-Ray 12/17/23 19:41 IMPRESSION: No acute findings. Laboratory Results WBC 12.64 10^3/uL (3.29-11.43) H 12/17/23 20:25 RBC 4.35 10^6/uL (3.85-5.65) 12/17/23 20:25 Hgb 13.50 g/dL (11.27-16.99) 12/17/23 20:25 Hct 40.0 % (37-53) 12/17/23 20:25 MCV 92.0 fl (82-101) 12/17/23 20:25 MCH 31.0 pg (27-33) 12/17/23 20: MCHC 33.8 g/dL (30-55) 12/17/23 20:25 RDW 11.5 % (12.1-15.1) L 12/17/23 20:25 Plt Count 327 10^3/cmm (157-399) 12/17/23 20:25 MPV 9.3 fL (7.4-10.4) 12/17/23 20:25 Neut % (Auto) 75.2 % 12/17/23 20:25 Lymph % (Auto) 14.6 % 12/17/23 20:25 [place] % (Auto) 8.3 % 12/17/23 20:25 Eos % (Auto) 1.1 % 12/17/23 20:25 Baso % (Auto) 0.5 % 12/17/23 20:25 Neut # (Auto) 9.51 10^3/uL (1.8-7.7) H 12/17/23 20:25 Lymph # (Auto) 1.8 10^3/uL (0.8-4.8) 12/17/23 20:25 [place]ner # (Auto) 1.1 10^3/uL (0.2-0.9) H 12/17/23 20:25 Eos # (Auto) 0.1 10^3/uL (0.0-0.8) 12/17/23 20:25 Baso # (Auto) 0.1 10^3/uL (0.0-0.1) 12/17/23 20: Nucleated RBC % (auto) 0 % 12/17/23 20: Nucleated RBCs # 0.0 /100WBC 12/17/23 20:25 ESR 43 mm/hr (0-10) H 12/17/23 20:25 Sodium 139 mmol/L (136-145) 12/17/23 20:25 Potassium 3.1 mmol/L (3.5-5.1) L 12/17/23 20:25 Chloride 96 mmol/L (98-107) L 12/17/23 20:25 Carbon Dioxide 22 mmol/L (22-29) 12/17/23 20:25 Anion Gap 24.1 (5-19) H 12/17/23 20:25 BUN 8 mg/dL (6-20) 12/17/23 20:25 Creatinine 0.7 mg/dL (0.7-1.2) 12/17/23 20:25 GFR Calculation 131.5 mL/min (90-130) H 12/17/23 20:25 Glucose 99 mg/dL (65-115) 12/17/23 20:25 Calculated Osmolality 286 mOsm/kg (285-295) 12/17/23 20:25 Lactic Acid 3.1 mmol/L (0.5-2.2) H 12/17/23 20:25 Uric Acid 4.7 mg/dL (3.4-7.0) 12/17/23 20:25 Calcium 9.7 mg/dL (8.5-10.5) 12/17/23 20: Total Bilirubin 0.6 mg/dL (0.15-1.2) 12/17/23 20:25 AST 21 U/L (0-40) 12/17/23 20: ALT 9 U/L (0-41) 12/17/23 20: Alkaline Phosphatase 134 U/L (40-130) H 12/17/23 20:25 C-Reactive Protein 87.7 mg/L (0.0-4.9) H 12/17/23 20: Total Protein 8.1 g/dL (6.6-8.7) 12/17/23 20: Albumin 4.7 g/dL (3.5-5.2) 12/17/23 20: Globulin 3.4 g/dL (1.3-4.6) 12/17/23 20:25 Urine Color Yellow (Yellow) 12/17/23 20:08 Urine Appearance Clear (CLEAR) 12/17/23 20:08 Urine pH 7.0 (5-7) 12/17/23 20:08 Ur Specific [place] 1.006 (1.005-1.030) 12/17/23 20:08 Urine Protein Negative (Negative) 12/17/23 20:08 Urine Glucose (UA) Negative (Normal) 12/17/23 20:08 Urine Ketones Negative (Negative) 12/17/23 20: Urine Blood Negative (Negative) 12/17/23 20: Urine Nitrate Negative (Negative) 12/17/23 20:08 Urine Bilirubin Negative (Negative) 12/17/23 20: Urine Urobilinogen 1.0 mg/dL (Negative) 12/17/23 20:08 Ur Leukocyte Esterase Negative (Negative) 12/17/23 20:08 Urine RBC 0-2 /hpf (0-2) 09/01/24 20:08 Urine WBC 0-5 /hpf (0-5) 12/17/23 20:08 Ur Squamous Epith Cells 0-5 /hpf (0-5) 12/17/23 20:08 Amorphous Sediment Not Reportable 12/17/23 20:08 Urine Bacteria None seen /hpf (NONE) 12/17/23 20:08 Hyaline Casts 0-4 /lpf H 12/17/23 20:08 Urine Opiates Screen Negative ng/mL (Negative) 12/17/23 20:08 Ur Barbiturates Screen Negative ng/mL (Negative) 12/17/23 20:08 Ur Phencyclidine Scrn Negative ng/mL (Negative) 12/17/23 20:08 Ur Amphetamines Screen Positive ng/mL (Negative) H 12/17/23 20:08 U Benzodiazepines Scrn Negative ng/mL (Negative) 12/17/23 20:08 Urine Cocaine Screen Negative ng/mL (Negative) 12/17/23 20:08 U Marijuana (THC) Screen Positive ng/mL (Negative) H 12/17/23 20:08 Ethyl Alcohol 191 mg/dL (0-10) H 12/17/23 20:25 All radiology interpretation(s) finalized by discharge Discharge Plan Discharge Patient Disposition: Home Clinical Impression: Cellulitis of both feet Condition: Stable Prescriptions: New ketorolac 10 mg tablet 10 mg PO TID PRN (Reason: pain) Qty: 10 0RF doxycycline hyclate 100 mg tablet 100 mg PO BID 10 Days Qty: 20 0RF No Action sertraline 50 mg tablet 50 mg PO .morning Qty: 30 3RF Rx Instructions: Take one tablet every morning Discharge Orders: Discharge ED (Routine); Ordered 12/17/23 Ordered By: Gavin Jones Referrals: Michelle Wood FNP [Primary Care Provider] - 1-3 days Patient Instructions: Cellulitis (ED), Opioid Safety, Pain Management Activity Restrictions/Additional Instructions: Antibiotics as directed. Stay hydrated. Return for fever greater than 100 despite 3-4 doses of antibiotics, spreading redness despite 3-4 doses of antibiotics, streaking up the leg, drainage, vomiting medications, other concerning symptoms. Coding Level of Care Code ED Sterile Process Coordinator for Abbie Lowe
[2023-12-17 21:26] VITALS: BP 125/65; PULSE 85; RESP 14; O2SAT 98
[2023-12-17 21:34] LABS: UA Slide Review UA Slide Review Perf
[2023-12-17 22:16] LABS: Reflex Lactate Order REFLEX LACTIC ORDERD
[2023-12-17 22:54] VITALS: BP 129/80
[2023-12-17 23:10] VITALS: BP 132/76
[2023-12-17 23:55] VITALS: BP 118/80; PULSE 76; RESP 14; O2SAT 99
[2023-12-17 23:56] VITALS: BP 118/80; PULSE 76; RESP 14; TEMP 36.6; O2SAT 99
== END 2023-12-18 00:08 | disposition home or self-care (01) ==
PROVIDERS: Emergency Provider Emergency Medicine; PCP Nurse Practitioner
DX: L03.116 Cellulitis of left lower limb (principal); L03.115 Cellulitis of right lower limb; F17.210 Nicotine dependence, cigarettes, uncomplicated
CPT/HCPCS: 73630; 80053; 80306; 80307; 81003; 81015; 83605; 84550; 85025; 85651; 86140; 96365; 96375; 99284; J1630; J1885; J3370; J7050

== ENCOUNTER 2024-10-04 19:37 | Emergency (ER) | payer MEDICAID, SELFPAY ==
[2024-10-04 19:50] VITALS: BP 135/86; PULSE 134; RESP 18; TEMP 36.6; O2SAT 97; BMI 18.4
--- NOTE | 2024-10-04 20:24 | ED.C_ITS ---
HPI - Psych General: Chief Complaint: Abdominal Pain Stated Complaint: mhe Time Seen by Provider: 10/04/24 19:48 History of Present Illness: 33-year-old male patient presenting with depression. He states that he was chatting with friends earlier, they were concerned, and called 911. He presents with worsening depression. He has been treated for depression in the past. He says he has been admitted multiple times in the distant past to the hospital for depression. He states that in no way is he suicidal or homicidal. He does not have a plan to hurt himself or anyone else. He does admit to intermittent substance abuse, mainly alcohol, and marijuana, but is not intoxicated currently. Related Data Previous Rx's ?Medication ?Instructions ?Recorded ketorolac 10 mg tablet 10 mg PO TID PRN pain #10 ta bs 12/17/23 sertraline 50 mg tablet 50 mg PO .morning #30 tabs 0 10/04/24 Allergies Allergy/AdvReac Type Severity Reaction Status Date / Time No Known Allergies Allergy Verified 09/15/23 14:50 [facility] ED [facility]: Medical History (Updated 10/04/24 @ 20:25 by Gavin Jones DO) Alcohol use disorder, severe, dependence Cannabis use disorder, severe, dependence Methamphetamine use disorder, severe Major depressive disorder, recurrent severe without psychotic features Social History Smoking and tobacco/nicotine status: current some day tobacco/nicotine user cigarettes Years cigarettes smoked: 12 Current gender identity: Male Physical Exam Const: COMMON NORMALS: no acute distress GENERAL APPEARANCE: cooperative; not ill appearing and not frail appearing HENMT: COMMON NORMALS: normocephalic, atraumatic and Normal external nose present HEAD & SCALP: normocephalic and atraumatic FACE & SINUS: normal facial exam and face symmetric NOSE: Normal external nose present Eye: COMMON NORMALS: Equal, round and reactive pupils present and EOMs intact bilaterally PUPIL: Yes Equal, round and reactive pupils present Neck/C-Spine: GENERAL: Yes trachea midline Chest: CHEST: Yes Symmetrical chest wall rise Resp: COMMON NORMALS: normal respiratory effort, No retractions, No use of accessory muscles and clear to auscultation bilaterally AUSCULTATION: clear to auscultation bilaterally Cardio: COMMON NORMALS: regular rate and regular rhythm RATE: regular rate RHYTHM: regular rhythm GI: COMMON NORMALS: Normal to inspection, nondistended, normoactive bowel sounds present Extremity: COMMON NORMALS: no pedal edema Neuro: SHRUTHI COMA SCALE: document GCS findings Shruthi coma scale eye o pening: Spontaneous Shruthi coma scale verbal response: Orientated Shruthi coma scale motor response: Obey commands Shruthi coma scale total score: 15 SENSORY EXAM: Yes extremities (intact) Psych: COMMON NORMALS: speech normal SPEECH: Yes normal speech Skin: COMMON NORMALS: no rashes or lesions noted GENERAL SKIN EXAM: no rashes or lesions noted Course Vital Signs: Vital signs: Vital Signs Temperature 98 F 10/04/24 19:50 Pulse Rate 104 H 10/04/24 20:51 Respiratory Rate 17 10/04/24 20:51 Blood Pressure 153/90 10/04/24 20:51 Pulse Oximetry 98 10/04/24 20:51 MDM - Psych Medical Decision Making Mr. Butterfield maintains that he is not suicidal or homicidal. He has no plan to hurt himself. He states that he can go home with his grandmother, and be safe there under her supervision. He does request medication to help him with his depression. He is given oral Zydis here, and will be placed back on his sertraline. He knows to return for any worsening depression, thoughts of albert cide or homicide, etc. He is given me is worried that he will return for evaluation if he has any of the symptoms. He is not significantly intoxicated this evening. Medically, he is quite stable All radiology interpretation(s) finalized by discharge Discharge Plan Discharge Patient Disposition: Home Clinical Impression: Depression Condition: Stable Prescriptions: Continued sertraline 50 mg tablet 50 mg PO .morning Qty: 30 3RF Rx Instructions: Take one tablet every morning No Action ketorolac 10 mg tablet 10 mg PO TID PRN (Reason: pain) Qty: 10 0RF Discharge Orders: Discharge ED (Routine); Ordered 10/04/24 Ordered By: Gavin Jones Referrals: Michelle Wood FNP [Primary Care Provider, Family Practice] - 4-7 days Patient Instructions: Depression (ED), Opioid Safety, Pain Management Activity Restrictions/Additional Instructions: Case management will make an appointment with behavioral health, and contact you regarding this. Return immediately to the emergency department for any thoughts feelings or wishes to harm your self or anyone else. Medication as directed. Call your doctor, listed above Monday for follow-up appointment as well. Print Language: Setswana Coding Level of Care Code ED Database Security Administrator for Abbie Lowe
[2024-10-04] MEDS: OLANZapine 10 mg ODT 20 MG PO (20:27)
[2024-10-04 20:51] VITALS: BP 153/90; PULSE 104; RESP 17; O2SAT 98
== END 2024-10-04 20:57 | disposition home or self-care (01) ==
PROVIDERS: Emergency Provider Emergency Medicine; PCP Nurse Practitioner
DX: F32.A Depression, unspecified (principal); F17.210 Nicotine dependence, cigarettes, uncomplicated
CPT/HCPCS: 99283; J9999